=== PATIENT | female | born 1960 | race Caucasian/White ===

== ENCOUNTER 2021-08-13 08:56 | Inpatient (IN) ==
[2021-08-13] MEDS ORDERED: Piperacillin/Tazobac ADVAN 3.375 GM in NS 0.9% 100 ml BAG 100 ML IV ONE (09:21)
[2021-08-13] MEDS ORDERED: Magnesium Sulfate IV 3 GM in NS 0.9% 100 ml BAG 100 ML IVPB ONE (09:22)
[2021-08-13] MEDS ORDERED: Albuterol 2.5mg/3 ml (0.083%) NEB.SOLN INH ONE (09:24)
[2021-08-13] MEDS ORDERED: Hydrocortisone INJ 100 MG/2ML 2 ML VIAL IV ONE (09:30)
[2021-08-13 09:52] LABS: PO2 Arterial 94 mmHg (80-100)
[2021-08-13 09:56] LABS: PCO2 Arterial 106 mmHg (35-45)
[2021-08-13] MEDS ORDERED: Rocuronium 50 mg VIAL 10 mg/ml 5 ml VIAL (50 mg) IV ONE (09:58)
[2021-08-13] MEDS ORDERED: Propofol 10 mg/ml 100 ML BTL 100 ML IV SCH (10:00)
[2021-08-13] MEDS ORDERED: Norepinephrine 16MCG/ML IVPRE 4,000 MCG/250 ML BAG IV SCH (10:00)
[2021-08-13] MEDS ORDERED: Zosyn per Pharmacy NOTE FOLLOW UP SCH (10:00)
[2021-08-13] MEDS: Chlorhexidine MOUTHWASH 0.12% 15 ML UDC TOPICAL SCH ×4 (10:16→20:49)
[2021-08-13] MEDS ORDERED: fentaNYL 100 mcg/2 ml 50 MCG/ML VIAL ONE (10:56)
[2021-08-13] MEDS ORDERED: fentaNYL 100 mcg/2 ml 50 MCG/ML VIAL IV SLOW PU PRN (11:01)
[2021-08-13] MEDS: Linezolid 600 MG IVPREMIX(*) 600 MG/300 ML BAG IVPB SCH ×2 (11:01→20:46)
[2021-08-13] MEDS ORDERED: Cisatracurium 100 MG in NS 0.9% 250 ml 200 ML IV SCH ×3 (11:15→14:48)
[2021-08-13] MEDS: Albuterol/Ipratropium NEB.SOL (2.5/0.5 MG) 3 ML NEB.SOLN INH SCH ×4 (11:18→23:48)
[2021-08-13 11:52] LABS: Glucose Confirmatory 471 mg/dL (70-100)
[2021-08-13] MEDS ORDERED: fentaNYL INFUSION 50 mcg/mL VL 2,500 MCG/50 ML VIAL IV SCH (12:00)
[2021-08-13] MEDS: Propofol 10 mg/ml 100 ML BTL 100 ML IV SCH ×3 (12:07→18:53)
[2021-08-13] MEDS ORDERED: Dexmedetomidine 1,000 MCG in NS 0.9% 250 ml 240 ML IV SCH (13:00)
[2021-08-13] MEDS ORDERED: Perflutren Lipid Microsphere 3 ML VIAL ONE (13:13)
[2021-08-13] MEDS: Dexmedetomidine 1,000 MCG in NS 0.9% 250 ml 240 ML IV SCH (14:10)
[2021-08-13] MEDS: ZOSYN 3.375 GM Q8H per EXTENDED INFUSION IV SCH ×2 (14:30→20:49)
[2021-08-13 15:37] LABS: PCO2 Arterial 71 mmHg (35-45); PO2 Arterial 81 mmHg (80-100)
[2021-08-13] MEDS ORDERED: Morphine 2 MG/ML SYRINGE IV PRN (17:05)
[2021-08-13 17:26] LABS: ABS Lymphocytes 0.8 10^3/ul (1.0-4.8); ABS Monocytes 0.5 10^3/ul (0-0.8); ABS Neutrophils 11.4 10^3/ul (1.5-7.7); Hematocrit 39 % (35-47); Hemoglobin 12.5 g/dL (12.0-16.0); Lymphocyte % 6.3 %; Mean Corpuscular HGB Conc 32 g/dL (31-36); Mean Corpuscular Hemoglobin 26 pg (27-31); Mean Corpuscular Volume 81 fL (80-97); Mean Platelet Volume 8.5 fL (7.4-10.4); Nucleated Red Blood Cells % 0.1; Platelet Count 297 10^3/uL (150-450); Red Blood Count 4.78 10^6 /uL (3.70-4.87); Red Cell Distribution Width 15 % (10-15); White Blood Count 12.7 10^3/uL (3.5-10.8)
[2021-08-13 17:32] LABS: INR 1.17 (0.86-1.15)
[2021-08-13 17:34] LABS: Glucose Confirmatory 480 mg/dL (70-100)
[2021-08-13] MEDS ORDERED: Dextrose 50% Syringe 50 ml 25 GM/50 ML SYRINGE IV PUSH PRN (17:41)
[2021-08-13 17:44] LABS: Albumin 3.4 g/dL (3.2-5.2); EGFR African American 53.2 (>60); Globulin 3.3 g/dL (2-4); Magnesium 2.3 mg/dL (1.9-2.7); Phosphorus 5.3 mg/dL (2.5-5.0); Potassium 4.9 mmol/L (3.5-5.0); Total Bilirubin 0.3 mg/dL (0.2-1.0); Total Protein 6.7 g/dL (6.4-8.9)
[2021-08-13] MEDS ORDERED: Insulin GLARGINE 100 un/ml 10 ml VIAL ONE (17:56)
[2021-08-13] MEDS: Enoxaparin 40 MG/0.4 ML SYR SUBCUT SCH (18:00)
[2021-08-13] MEDS ORDERED: Insulin GLARGINE 100 un/ml 10 ml VIAL SUBCUT SCH (18:00)
[2021-08-13] MEDS: Hydrocortisone INJ 100 MG/2ML 2 ML VIAL IV SCH (18:01)
[2021-08-13 21:22] LABS: Glucose Confirmatory 403 mg/dL (70-100)
[2021-08-14] MEDS: Hydrocortisone INJ 100 MG/2ML 2 ML VIAL IV SCH (01:06)
[2021-08-14] MEDS: Propofol 10 mg/ml 100 ML BTL 100 ML IV SCH ×6 (01:06→20:29)
[2021-08-14] MEDS: Chlorhexidine MOUTHWASH 0.12% 15 ML UDC TOPICAL SCH ×6 (01:06→20:48)
[2021-08-14] MEDS: Albuterol/Ipratropium NEB.SOL (2.5/0.5 MG) 3 ML NEB.SOLN INH SCH ×9 (05:45→22:56)
[2021-08-14] MEDS: ZOSYN 3.375 GM Q8H per EXTENDED INFUSION IV SCH ×3 (06:04→20:49)
[2021-08-14 06:29] LABS: PCO2 Arterial 63 mmHg (35-45); PO2 Arterial 70 mmHg (80-100)
[2021-08-14] MEDS: Dexmedetomidine 1,000 MCG in NS 0.9% 250 ml 240 ML IV SCH (06:53)
[2021-08-14 07:02] LABS: Hematocrit 35 % (35-47); Hemoglobin 11.7 g/dL (12.0-16.0); Mean Corpuscular HGB Conc 33 g/dL (31-36); Mean Corpuscular Hemoglobin 26 pg (27-31); Mean Corpuscular Volume 79 fL (80-97); Mean Platelet Volume 8.7 fL (7.4-10.4); Platelet Count 268 10^3/uL (150-450); Red Blood Count 4.48 10^6 /uL (3.70-4.87); Red Cell Distribution Width 15 % (10-15); White Blood Count 13.2 10^3/uL (3.5-10.8)
[2021-08-14 07:16] LABS: EGFR African American 53.2 (>60); Magnesium 2.2 mg/dL (1.9-2.7); Phosphorus 4.6 mg/dL (2.5-5.0); Potassium 4.2 mmol/L (3.5-5.0)
[2021-08-14] MEDS: Linezolid 600 MG IVPREMIX(*) 600 MG/300 ML BAG IVPB SCH ×2 (09:36→20:49)
[2021-08-14] MEDS ORDERED: Furosemide 40 mg/4 ml IV VIAL IV ONE (09:46)
[2021-08-14] MEDS: methylPREDNISolone SOD 40 mg/ml 1 ml VIAL IV SCH ×2 (09:47→20:48)
[2021-08-14] MEDS: Pantoprazole VIAL 40 MG VIAL IV SCH (09:49)
[2021-08-14] MEDS: Nystatin TOP POWDER 15 GM BTL TOPICAL SCH ×3 (10:30→20:48)
[2021-08-14] MEDS ORDERED: Albuterol 2.5mg/3 ml (0.083%) NEB.SOLN INH ONE ×2 (10:47→10:52)
[2021-08-14] MEDS ORDERED: Cisatracurium 100 MG in NS 0.9% 250 ml 200 ML IV SCH ×2 (13:00→18:17)
[2021-08-14] MEDS: Insulin GLARGINE 100 un/ml 10 ml VIAL SUBCUT SCH (17:45)
[2021-08-14 17:51] LABS: EGFR African American 53.2 (>60); Potassium 4.4 mmol/L (3.5-5.0)
[2021-08-14 18:20] LABS: Phosphorus 4.7 mg/dL (2.5-5.0)
[2021-08-14] MEDS: Enoxaparin 40 MG/0.4 ML SYR SUBCUT SCH (20:48)
[2021-08-15] MEDS: Dexmedetomidine 1,000 MCG in NS 0.9% 250 ml 240 ML IV SCH ×2 (00:42→17:26)
[2021-08-15] MEDS: Chlorhexidine MOUTHWASH 0.12% 15 ML UDC TOPICAL SCH ×6 (00:51→22:09)
[2021-08-15] MEDS: Albuterol/Ipratropium NEB.SOL (2.5/0.5 MG) 3 ML NEB.SOLN INH SCH ×11 (00:59→22:56)
[2021-08-15] MEDS: Propofol 10 mg/ml 100 ML BTL 100 ML IV SCH ×4 (04:33→22:20)
[2021-08-15] MEDS: ZOSYN 3.375 GM Q8H per EXTENDED INFUSION IV SCH (05:07)
[2021-08-15 05:10] LABS: Hematocrit 34 % (35-47); Hemoglobin 11.1 g/dL (12.0-16.0); Mean Corpuscular HGB Conc 32 g/dL (31-36); Mean Corpuscular Hemoglobin 26 pg (27-31); Mean Corpuscular Volume 80 fL (80-97); Platelet Count 256 10^3/uL (150-450); Red Blood Count 4.28 10^6 /uL (3.70-4.87); Red Cell Distribution Width 14 % (10-15); White Blood Count 13.7 10^3/uL (3.5-10.8)
[2021-08-15 05:33] LABS: Calcium 7.9 mg/dL (8.6-10.3); EGFR African American 66.7 (>60); EGFR Non-African American 55.1 (>60); Phosphorus 4.2 mg/dL (2.5-5.0); Potassium 4.6 mmol/L (3.5-5.0)
[2021-08-15 09:31] LABS: PO2 Arterial 79 mmHg (80-100)
[2021-08-15] MEDS: Pantoprazole VIAL 40 MG VIAL IV SCH (09:34)
[2021-08-15] MEDS: methylPREDNISolone SOD 40 mg/ml 1 ml VIAL IV SCH ×2 (09:34→22:09)
[2021-08-15] MEDS: Nystatin TOP POWDER 15 GM BTL TOPICAL SCH ×3 (09:34→22:09)
[2021-08-15] MEDS: cefTRIAXone 1 gm/50 mL NS BAG 1 GM/50 ML BAG IVPB SCH (09:36)
[2021-08-15 09:38] LABS: PCO2 Arterial 76 mmHg (35-45)
[2021-08-15] MEDS ORDERED: Albuterol/Ipratropium NEB.SOL (2.5/0.5 MG) 3 ML NEB.SOLN INH SCH (10:00)
[2021-08-15] MEDS ORDERED: Albuterol/Ipratropium NEB.SOL (2.5/0.5 MG) 3 ML NEB.SOLN INH ONE (11:56)
[2021-08-15] MEDS ORDERED: Magnesium Sulfate 2 gm BAG 2 GM/50 ML BAG IVPB ONE (11:56)
[2021-08-15 12:49] LABS: PO2 Arterial 85 mmHg (80-100)
[2021-08-15 12:58] LABS: PCO2 Arterial 78 mmHg (35-45)
[2021-08-15] MEDS: Insulin GLARGINE 100 un/ml 10 ml VIAL SUBCUT SCH (17:25)
[2021-08-15] MEDS: Enoxaparin 40 MG/0.4 ML SYR SUBCUT SCH (22:09)
[2021-08-16] MEDS: Albuterol/Ipratropium NEB.SOL (2.5/0.5 MG) 3 ML NEB.SOLN INH SCH ×7 (00:56→23:01)
[2021-08-16] MEDS: Propofol 10 mg/ml 100 ML BTL 100 ML IV SCH ×4 (01:25→21:58)
[2021-08-16] MEDS: Chlorhexidine MOUTHWASH 0.12% 15 ML UDC TOPICAL SCH ×6 (01:44→20:29)
[2021-08-16 05:29] LABS: Hematocrit 35 % (35-47); Hemoglobin 11.2 g/dL (12.0-16.0); Mean Corpuscular HGB Conc 32 g/dL (31-36); Mean Corpuscular Hemoglobin 26 pg (27-31); Mean Corpuscular Volume 80 fL (80-97); Mean Platelet Volume 8.6 fL (7.4-10.4); Platelet Count 258 10^3/uL (150-450); Red Blood Count 4.38 10^6 /uL (3.70-4.87); Red Cell Distribution Width 14 % (10-15); White Blood Count 13.3 10^3/uL (3.5-10.8)
[2021-08-16 05:43] LABS: Calcium 8.3 mg/dL (8.6-10.3); EGFR African American 93.6 (>60); EGFR Non-African American 77.4 (>60); Magnesium 2.3 mg/dL (1.9-2.7); Phosphorus 3.7 mg/dL (2.5-5.0); Potassium 4.6 mmol/L (3.5-5.0)
[2021-08-16] MEDS ORDERED: Albuterol/Ipratropium NEB.SOL (2.5/0.5 MG) 3 ML NEB.SOLN INH SCH ×5 (09:00→19:00)
[2021-08-16] MEDS: cefTRIAXone 1 gm/50 mL NS BAG 1 GM/50 ML BAG IVPB SCH (09:14)
[2021-08-16] MEDS: Pantoprazole VIAL 40 MG VIAL IV SCH (09:16)
[2021-08-16] MEDS: methylPREDNISolone SOD 40 mg/ml 1 ml VIAL IV SCH ×3 (09:16→20:28)
[2021-08-16] MEDS: Nystatin TOP POWDER 15 GM BTL TOPICAL SCH ×3 (09:20→20:28)
[2021-08-16 10:54] LABS: PO2 Arterial 82 mmHg (80-100)
[2021-08-16 11:05] LABS: PCO2 Arterial 83 mmHg (35-45)
[2021-08-16] MEDS: fentaNYL 100 mcg/2 ml 50 MCG/ML VIAL IV SLOW PU PRN ×2 (13:12→16:47)
[2021-08-16] MEDS ORDERED: fentaNYL 100 mcg/2 ml 50 MCG/ML VIAL ONE (13:12)
[2021-08-16] MEDS: Insulin GLARGINE 100 un/ml 10 ml VIAL SUBCUT SCH (18:04)
[2021-08-16] MEDS: Enoxaparin 40 MG/0.4 ML SYR SUBCUT SCH (20:28)
[2021-08-17] MEDS: Propofol 10 mg/ml 100 ML BTL 100 ML IV SCH ×4 (00:13→06:55)
[2021-08-17] MEDS: Chlorhexidine MOUTHWASH 0.12% 15 ML UDC TOPICAL SCH ×3 (02:12→11:35)
[2021-08-17] MEDS: methylPREDNISolone SOD 40 mg/ml 1 ml VIAL IV SCH ×4 (02:48→21:47)
[2021-08-17] MEDS: Albuterol/Ipratropium NEB.SOL (2.5/0.5 MG) 3 ML NEB.SOLN INH SCH ×3 (03:01→10:17)
[2021-08-17 04:47] LABS: Hematocrit 35 % (35-47); Hemoglobin 11.4 g/dL (12.0-16.0); Mean Corpuscular HGB Conc 32 g/dL (31-36); Mean Corpuscular Hemoglobin 25 pg (27-31); Mean Corpuscular Volume 79 fL (80-97); Mean Platelet Volume 8.3 fL (7.4-10.4); Platelet Count 266 10^3/uL (150-450); Red Blood Count 4.46 10^6 /uL (3.70-4.87); Red Cell Distribution Width 14 % (10-15); White Blood Count 12.2 10^3/uL (3.5-10.8)
[2021-08-17] MEDS: Dexmedetomidine 1,000 MCG in NS 0.9% 250 ml 240 ML IV SCH (04:58)
[2021-08-17 05:03] LABS: Calcium 8.6 mg/dL (8.6-10.3); EGFR African American 106.4 (>60); Magnesium 2.2 mg/dL (1.9-2.7); Phosphorus 3.6 mg/dL (2.5-5.0); Potassium 4.9 mmol/L (3.5-5.0)
[2021-08-17] MEDS: cefTRIAXone 1 gm/50 mL NS BAG 1 GM/50 ML BAG IVPB SCH (08:08)
[2021-08-17] MEDS: Nystatin TOP POWDER 15 GM BTL TOPICAL SCH ×3 (08:10→21:47)
[2021-08-17] MEDS: Pantoprazole VIAL 40 MG VIAL IV SCH (08:10)
[2021-08-17] MEDS ORDERED: Furosemide 40 mg/4 ml IV VIAL IV SLOW PU ONE ×2 (08:31→18:04)
[2021-08-17] MEDS ORDERED: Furosemide 40 mg/4 ml IV VIAL ONE (08:32)
[2021-08-17 09:02] LABS: PCO2 Arterial 68 mmHg (35-45); PO2 Arterial 91 mmHg (80-100)
[2021-08-17] MEDS: fentaNYL 100 mcg/2 ml 50 MCG/ML VIAL IV SLOW PU PRN (09:54)
[2021-08-17] MEDS ORDERED: fentaNYL 100 mcg/2 ml 50 MCG/ML VIAL IV SLOW PU ONE (10:11)
[2021-08-17] MEDS: Insulin GLARGINE 100 un/ml 10 ml VIAL SUBCUT SCH (18:08)
[2021-08-17 18:49] LABS: Calcium 9.3 mg/dL (8.6-10.3); EGFR African American 101.3 (>60); EGFR Non-African American 83.7 (>60); Potassium 4.4 mmol/L (3.5-5.0)
[2021-08-17] MEDS: Enoxaparin 40 MG/0.4 ML SYR SUBCUT SCH (21:47)
[2021-08-17] MEDS: Metoprolol Tartrate 5 mg VIAL 5 ml VIAL (1 mg/ml) IV PRN (22:04)
[2021-08-17] MEDS: hydrALAZINE 20 mg/ml 1 ML Vial IV IV SLOW PU PRN (23:11)
[2021-08-18] MEDS ORDERED: Lorazepam PYXIS KEY PRN (00:34)
[2021-08-18] MEDS: LORazepam 2 mg VIAL 1 ml IV PUSH PRN ×3 (00:57→21:22)
[2021-08-18] MEDS: methylPREDNISolone SOD 40 mg/ml 1 ml VIAL IV SCH ×3 (03:53→18:05)
[2021-08-18] MEDS: Metoprolol Tartrate 5 mg VIAL 5 ml VIAL (1 mg/ml) IV PRN ×3 (05:11→21:22)
[2021-08-18 05:25] LABS: ABS Basophils 0.1 10^3/ul (0-0.2); ABS Lymphocytes 1.6 10^3/ul (1.0-4.8); ABS Monocytes 0.9 10^3/ul (0-0.8); ABS Neutrophils 12.7 10^3/ul (1.5-7.7); Hematocrit 41 % (35-47); Hemoglobin 13.3 g/dL (12.0-16.0); Lymphocyte % 10.4 %; Mean Corpuscular HGB Conc 32 g/dL (31-36); Mean Corpuscular Hemoglobin 26 pg (27-31); Mean Corpuscular Volume 79 fL (80-97); Mean Platelet Volume 8.3 fL (7.4-10.4); Platelet Count 350 10^3/uL (150-450); Red Blood Count 5.21 10^6 /uL (3.70-4.87); Red Cell Distribution Width 15 % (10-15); White Blood Count 15.3 10^3/uL (3.5-10.8)
[2021-08-18 05:53] LABS: Calcium 9.4 mg/dL (8.6-10.3); EGFR African American 110.2 (>60); Magnesium 1.9 mg/dL (1.9-2.7); Phosphorus 2.7 mg/dL (2.5-5.0); Potassium 4.2 mmol/L (3.5-5.0)
[2021-08-18] MEDS: hydrALAZINE 20 mg/ml 1 ML Vial IV IV SLOW PU PRN (07:32)
[2021-08-18] MEDS: Albuterol HFA INHALER 8 gm MDI INH PRN ×3 (08:03→16:45)
[2021-08-18 08:05] LABS: PCO2 Arterial 69 mmHg (35-45); PO2 Arterial 111 mmHg (80-100)
[2021-08-18] MEDS: Pantoprazole VIAL 40 MG VIAL IV SCH (09:23)
[2021-08-18] MEDS: cefTRIAXone 1 gm/50 mL NS BAG 1 GM/50 ML BAG IVPB SCH (09:23)
[2021-08-18] MEDS: Nystatin TOP POWDER 15 GM BTL TOPICAL SCH ×3 (09:23→20:57)
[2021-08-18] MEDS: Enoxaparin 40 MG/0.4 ML SYR SUBCUT SCH (20:55)
[2021-08-18] MEDS: Insulin GLARGINE 100 un/ml 10 ml VIAL SUBCUT SCH (20:56)
[2021-08-19] MEDS: hydrALAZINE 20 mg/ml 1 ML Vial IV IV SLOW PU PRN (00:40)
[2021-08-19] MEDS: methylPREDNISolone SOD 40 mg/ml 1 ml VIAL IV SCH (00:40)
[2021-08-19] MEDS: LORazepam 2 mg VIAL 1 ml IV PUSH PRN (01:37)
[2021-08-19 05:05] LABS: ABS Monocytes 0.5 10^3/ul (0-0.8); ABS Neutrophils 11.7 10^3/ul (1.5-7.7); Hematocrit 43 % (35-47); Hemoglobin 13.8 g/dL (12.0-16.0); Lymphocyte % 7.7 %; Mean Corpuscular HGB Conc 32 g/dL (31-36); Mean Corpuscular Hemoglobin 26 pg (27-31); Mean Corpuscular Volume 80 fL (80-97); Mean Platelet Volume 8.6 fL (7.4-10.4); Platelet Count 323 10^3/uL (150-450); Red Blood Count 5.29 10^6 /uL (3.70-4.87); Red Cell Distribution Width 14 % (10-15); White Blood Count 13.3 10^3/uL (3.5-10.8)
[2021-08-19 05:32] LABS: Blood Urea Nitrogen 31 mg/dL (6-24); CO2 Carbon Dioxide 38 mmol/L (22-32); Calcium 9.6 mg/dL (8.6-10.3); Chloride 93 mmol/L (101-111); Glucose 373 mg/dL (70-100); Magnesium 1.9 mg/dL (1.9-2.7); Sodium 137 mmol/L (135-145)
[2021-08-19 06:02] LABS: Anion Gap 6 mmol/L (2-11)
[2021-08-19 06:47] LABS: Phosphorus 3.5 mg/dL (2.5-5.0); Potassium Redraw 4.8 mmol/L (3.5-5.0)
[2021-08-19] MEDS: cefTRIAXone 1 gm/50 mL NS BAG 1 GM/50 ML BAG IVPB SCH (09:17)
[2021-08-19] MEDS: Pantoprazole VIAL 40 MG VIAL IV SCH (09:18)
[2021-08-19] MEDS: Nystatin TOP POWDER 15 GM BTL TOPICAL SCH ×3 (09:18→20:13)
[2021-08-19] MEDS ORDERED: hydrALAZINE 20 mg/ml 1 ML Vial IV IV SLOW PU PRN (14:50)
[2021-08-19] MEDS ORDERED: Albuterol/Ipratropium NEB.SOL (2.5/0.5 MG) 3 ML NEB.SOLN INH PRN (16:55)
[2021-08-19 17:21] LABS: Glucose Confirmatory 439 mg/dL (70-100)
[2021-08-19] MEDS: Albuterol/Ipratropium NEB.SOL (2.5/0.5 MG) 3 ML NEB.SOLN INH SCH (18:45)
[2021-08-19] MEDS: Enoxaparin 40 MG/0.4 ML SYR SUBCUT SCH (20:12)
[2021-08-19] MEDS: Insulin GLARGINE 100 un/ml 10 ml VIAL SUBCUT SCH (20:31)
[2021-08-20] MEDS: Albuterol/Ipratropium NEB.SOL (2.5/0.5 MG) 3 ML NEB.SOLN INH SCH (02:10)
[2021-08-20 06:44] LABS: Calcium 9.4 mg/dL (8.6-10.3); Magnesium 1.8 mg/dL (1.9-2.7)
[2021-08-20] MEDS ORDERED: Magnesium Sulfate 2 gm BAG 2 GM/50 ML BAG IVPB ONE (06:49)
[2021-08-20] MEDS ORDERED: Albuterol HFA INHALER 8 gm MDI INH PRN (08:46)
[2021-08-20] MEDS: Pantoprazole VIAL 40 MG VIAL IV SCH (09:20)
[2021-08-20] MEDS: cefTRIAXone 1 gm/50 mL NS BAG 1 GM/50 ML BAG IVPB SCH (09:20)
[2021-08-20] MEDS: Nystatin TOP POWDER 15 GM BTL TOPICAL SCH ×3 (09:20→21:21)
[2021-08-20] MEDS: SPIRIVA Respimat (tiotropium) 2.5 mcg/inh Inhaler INH SCH (10:59)
[2021-08-20] MEDS: Albuterol HFA INHALER 8 gm MDI INH SCH ×2 (10:59→17:04)
[2021-08-20] MEDS: LORazepam 2 mg VIAL 1 ml IV PUSH PRN (20:24)
[2021-08-20] MEDS: Insulin GLARGINE 100 un/ml 10 ml VIAL SUBCUT SCH (21:16)
[2021-08-20] MEDS: Enoxaparin 40 MG/0.4 ML SYR SUBCUT SCH (21:16)
[2021-08-21] MEDS: Albuterol HFA INHALER 8 gm MDI INH SCH ×3 (01:39→16:36)
[2021-08-21 07:27] LABS: Magnesium 1.9 mg/dL (1.9-2.7); Phosphorus 3.6 mg/dL (2.5-5.0); Potassium 4.1 mmol/L (3.5-5.0)
[2021-08-21] MEDS: SPIRIVA Respimat (tiotropium) 2.5 mcg/inh Inhaler INH SCH (08:20)
[2021-08-21] MEDS: cefTRIAXone 1 gm/50 mL NS BAG 1 GM/50 ML BAG IVPB SCH (09:01)
[2021-08-21] MEDS: Nystatin TOP POWDER 15 GM BTL TOPICAL SCH ×3 (09:03→20:50)
[2021-08-21] MEDS: Pantoprazole VIAL 40 MG VIAL IV SCH (09:03)
[2021-08-21] MEDS: Enoxaparin 40 MG/0.4 ML SYR SUBCUT SCH (20:37)
[2021-08-21] MEDS: Insulin GLARGINE 100 un/ml 10 ml VIAL SUBCUT SCH (20:38)
[2021-08-22] MEDS: Albuterol HFA INHALER 8 gm MDI INH SCH ×4 (02:40→16:49)
[2021-08-22] MEDS: SPIRIVA Respimat (tiotropium) 2.5 mcg/inh Inhaler INH SCH ×2 (08:50→09:48)
[2021-08-22] MEDS: Nystatin TOP POWDER 15 GM BTL TOPICAL SCH ×3 (09:42→21:55)
[2021-08-22 11:47] LABS: ABS Basophils 0.1 10^3/ul (0-0.2); ABS Eosinophils 0.2 10^3/ul (0-0.6); ABS Lymphocytes 2.3 10^3/ul (1.0-4.8); ABS Monocytes 0.8 10^3/ul (0-0.8); ABS Neutrophils 16.3 10^3/ul (1.5-7.7); Hematocrit 40 % (35-47); Hemoglobin 12.9 g/dL (12.0-16.0); Lymphocyte % 11.6 %; Mean Corpuscular HGB Conc 32 g/dL (31-36); Mean Corpuscular Hemoglobin 25 pg (27-31); Mean Corpuscular Volume 79 fL (80-97); Mean Platelet Volume 8.7 fL (7.4-10.4); Platelet Count 337 10^3/uL (150-450); Red Blood Count 5.07 10^6 /uL (3.70-4.87); Red Cell Distribution Width 14 % (10-15); White Blood Count 19.8 10^3/uL (3.5-10.8)
[2021-08-22 12:04] LABS: Calcium 8.9 mg/dL (8.6-10.3); Magnesium 1.6 mg/dL (1.9-2.7); Potassium 4.3 mmol/L (3.5-5.0)
[2021-08-22] MEDS: Enoxaparin 40 MG/0.4 ML SYR SUBCUT SCH (21:41)
[2021-08-22] MEDS: Insulin GLARGINE 100 un/ml 10 ml VIAL SUBCUT SCH (21:43)
[2021-08-23] MEDS: Albuterol HFA INHALER 8 gm MDI INH SCH ×3 (01:08→16:36)
[2021-08-23 06:52] LABS: Calcium 8.8 mg/dL (8.6-10.3); Magnesium 1.7 mg/dL (1.9-2.7); Potassium 4.1 mmol/L (3.5-5.0)
[2021-08-23] MEDS: SPIRIVA Respimat (tiotropium) 2.5 mcg/inh Inhaler INH SCH (07:59)
[2021-08-23] MEDS: Nystatin TOP POWDER 15 GM BTL TOPICAL SCH ×3 (12:03→21:02)
[2021-08-23] MEDS: Insulin GLARGINE 100 un/ml 10 ml VIAL SUBCUT SCH (21:25)
[2021-08-23] MEDS: Enoxaparin 40 MG/0.4 ML SYR SUBCUT SCH (21:27)
[2021-08-24] MEDS: Albuterol HFA INHALER 8 gm MDI INH SCH ×3 (01:46→16:29)
[2021-08-24] MEDS: SPIRIVA Respimat (tiotropium) 2.5 mcg/inh Inhaler INH SCH (08:02)
[2021-08-24] MEDS: Nystatin TOP POWDER 15 GM BTL TOPICAL SCH ×3 (09:37→22:32)
[2021-08-24] MEDS: Insulin GLARGINE 100 un/ml 10 ml VIAL SUBCUT SCH (22:25)
[2021-08-24] MEDS: Enoxaparin 40 MG/0.4 ML SYR SUBCUT SCH (22:31)
[2021-08-25] MEDS: Albuterol HFA INHALER 8 gm MDI INH SCH ×3 (00:52→16:52)
[2021-08-25] MEDS: SPIRIVA Respimat (tiotropium) 2.5 mcg/inh Inhaler INH SCH (07:09)
[2021-08-25 07:12] LABS: ABS Basophils 0.1 10^3/ul (0-0.2); ABS Eosinophils 0.2 10^3/ul (0-0.6); ABS Lymphocytes 4.5 10^3/ul (1.0-4.8); ABS Monocytes 0.8 10^3/ul (0-0.8); ABS Neutrophils 7.4 10^3/ul (1.5-7.7); Eosinophil % 1.4 %; Hematocrit 38 % (35-47); Hemoglobin 12.6 g/dL (12.0-16.0); Mean Corpuscular HGB Conc 33 g/dL (31-36); Mean Corpuscular Hemoglobin 26 pg (27-31); Mean Corpuscular Volume 78 fL (80-97); Mean Platelet Volume 8.8 fL (7.4-10.4); Platelet Count 278 10^3/uL (150-450); Red Blood Count 4.88 10^6 /uL (3.70-4.87); Red Cell Distribution Width 14 % (10-15); White Blood Count 12.9 10^3/uL (3.5-10.8)
[2021-08-25 07:28] LABS: Calcium 8.8 mg/dL (8.6-10.3); Magnesium 1.6 mg/dL (1.9-2.7); Potassium 4.2 mmol/L (3.5-5.0)
[2021-08-25] MEDS ORDERED: Iodixanol (CONTRAST) 320 MG/ML 100 ML SDV IV ONE (07:58)
[2021-08-25] MEDS: Nystatin TOP POWDER 15 GM BTL TOPICAL SCH ×3 (08:51→21:18)
[2021-08-25] MEDS: Mometasone/Formoter 200/5 MDI INH SCH ×2 (11:16→20:11)
[2021-08-25] MEDS: Enoxaparin 40 MG/0.4 ML SYR SUBCUT SCH (21:11)
[2021-08-25] MEDS: Insulin GLARGINE 100 un/ml 10 ml VIAL SUBCUT SCH (21:18)
[2021-08-26] MEDS: Albuterol HFA INHALER 8 gm MDI INH SCH ×3 (02:24→19:28)
[2021-08-26] MEDS: Mometasone/Formoter 200/5 MDI INH SCH ×2 (07:02→19:29)
[2021-08-26] MEDS: SPIRIVA Respimat (tiotropium) 2.5 mcg/inh Inhaler INH SCH (07:03)
[2021-08-26] MEDS: Nystatin TOP POWDER 15 GM BTL TOPICAL SCH ×3 (09:40→21:51)
[2021-08-26 18:12] LABS: Glucose Confirmatory 441 mg/dL (70-100)
[2021-08-26] MEDS: Enoxaparin 40 MG/0.4 ML SYR SUBCUT SCH (21:32)
[2021-08-26] MEDS: Insulin GLARGINE 100 un/ml 10 ml VIAL SUBCUT SCH (21:49)
[2021-08-27] MEDS: Albuterol HFA INHALER 8 gm MDI INH SCH ×3 (02:50→16:13)
[2021-08-27] MEDS: Mometasone/Formoter 200/5 MDI INH SCH ×2 (08:00→19:41)
[2021-08-27] MEDS: SPIRIVA Respimat (tiotropium) 2.5 mcg/inh Inhaler INH SCH (08:01)
[2021-08-27] MEDS: Nystatin TOP POWDER 15 GM BTL TOPICAL SCH (08:42)
[2021-08-27] MEDS: Insulin GLARGINE 100 un/ml 10 ml VIAL SUBCUT SCH (20:47)
[2021-08-27] MEDS: Enoxaparin 40 MG/0.4 ML SYR SUBCUT SCH (20:47)
[2021-08-28] MEDS: Albuterol HFA INHALER 8 gm MDI INH SCH ×3 (02:11→17:17)
[2021-08-28 07:17] LABS: Calcium 8.5 mg/dL (8.6-10.3); Potassium 3.8 mmol/L (3.5-5.0)
[2021-08-28] MEDS: Mometasone/Formoter 200/5 MDI INH SCH ×2 (07:36→20:23)
[2021-08-28] MEDS: SPIRIVA Respimat (tiotropium) 2.5 mcg/inh Inhaler INH SCH (07:37)
[2021-08-28 22:08] LABS: PCO2 Arterial 64 mmHg (35-45)
[2021-08-28 22:28] LABS: PO2 Arterial Temp Correct <38 mmHg (80-100)
[2021-08-28] MEDS: Enoxaparin 40 MG/0.4 ML SYR SUBCUT SCH (23:28)
[2021-08-28] MEDS: Insulin GLARGINE 100 un/ml 10 ml VIAL SUBCUT SCH (23:28)
[2021-08-29] MEDS: Albuterol HFA INHALER 8 gm MDI INH SCH ×2 (01:36→07:23)
[2021-08-29] MEDS: SPIRIVA Respimat (tiotropium) 2.5 mcg/inh Inhaler INH SCH (07:23)
[2021-08-29] MEDS: Mometasone/Formoter 200/5 MDI INH SCH (07:24)
[2021-08-29 11:07] VITALS: BP 122/60
[2021-08-29] MEDS ORDERED: Nystatin TOP POWDER 15 GM BTL TOPICAL SCH (14:00)
[2021-08-29 15:27] LABS: PCO2 Arterial 57 mmHg (35-45); PO2 Arterial 122 mmHg (80-100)
== END 2021-08-29 16:34 | disposition home or self-care (01) | DRG 140 ==
LOC: SUATTDRO 08:56 → ICU 08:56 → MED 08-20 18:38
PROVIDERS: ADMIT Internal Medicine; ATTEND Pediatrics

== ENCOUNTER 2022-04-14 18:52 | Inpatient (IN) ==
[2022-04-14] MEDS ORDERED: methylPREDNISolone SOD SUCC 125 mg 2 ML VIAL IV ONE (19:23)
[2022-04-14 20:05] LABS: Hematocrit 33 % (35-47); Hemoglobin 10.4 g/dL (12.0-16.0); Mean Corpuscular HGB Conc 32 g/dL (31-36); Mean Corpuscular Hemoglobin 25 pg (27-31); Mean Corpuscular Volume 78 fL (80-97); Mean Platelet Volume 8.5 fL (7.4-10.4); Platelet Count 335 10^3/uL (150-450); Red Cell Distribution Width 15 % (10-15); White Blood Count 21.5 10^3/uL (3.5-10.8)
[2022-04-14 20:07] LABS: ABS Basophils 0.1 10^3/ul (0-0.2); ABS Lymphocytes 0.8 10^3/ul (1.0-4.8); ABS Monocytes 0.3 10^3/ul (0-0.8); ABS Neutrophils 20.3 10^3/ul (1.5-7.7); Eosinophil % 0.2 %; Lymphocyte % 3.7 %
[2022-04-14] MEDS: Albuterol 2.5mg/3 ml (0.083%) NEB.SOLN INH SCH ×3 (20:14→20:30)
[2022-04-14 20:15] LABS: Activated Partial Thrombo Time 34.8 seconds (26.0-38.0); INR 1.08 (0.86-1.15)
[2022-04-14 20:35] LABS: PCO2 Arterial 66 mmHg (35-45); PO2 Arterial 77 mmHg (80-100)
[2022-04-14 20:52] LABS: Albumin 3.6 g/dL (3.2-5.2); Albumin/Globulin Ratio 1.1 (1-3); Calcium 8.8 mg/dL (8.6-10.3); Globulin 3.2 g/dL (2-4); Total Bilirubin 0.2 mg/dL (0.2-1.0); Total Protein 6.8 g/dL (6.4-8.9); eGFR CKD-EPI 66.5 (>60)
[2022-04-14 20:59] LABS: Potassium 5.1 mmol/L (3.5-5.0)
[2022-04-14 21:26] LABS: High Sensitivity Troponin 1 Hr 157 pg/mL (<15)
[2022-04-14] MEDS ORDERED: Albuterol 2.5mg/3 ml (0.083%) NEB.SOLN INH PRN (22:00)
[2022-04-14] MEDS ORDERED: Piperacillin/Tazobac ADVAN 3.375 GM in NS 0.9% 100 ml BAG 100 ML IVPB ONE (22:19)
[2022-04-14] MEDS: Enoxaparin 40 MG/0.4 ML SYR SUBCUT SCH (22:35)
[2022-04-14] MEDS ORDERED: Dextrose 50% Syringe 50 ml 25 GM/50 ML SYRINGE IV PUSH PRN (22:53)
[2022-04-14] MEDS ORDERED: Zosyn per Pharmacy NOTE FOLLOW UP SCH (23:00)
[2022-04-14 23:19] LABS: PO2 Arterial 80 mmHg (80-100)
[2022-04-14 23:23] LABS: PCO2 Arterial 80 mmHg (35-45)
[2022-04-15] MEDS: DOXYcycline 100 MG in NS 0.9% 250 ml 250 ML IVPB SCH ×3 (00:24→21:42)
[2022-04-15 01:06] LABS: PO2 Arterial 130 mmHg (80-100)
[2022-04-15 01:09] LABS: PCO2 Arterial 75 mmHg (35-45)
[2022-04-15 01:26] LABS: Glucose Confirmatory 452 mg/dL (70-100)
[2022-04-15 01:34] LABS: High Sensitivity Troponin 3 Hr 417 pg/mL (<15)
[2022-04-15] MEDS ORDERED: Enoxaparin 60 MG/0.6 ML SYR SUBCUT ONE (01:54)
[2022-04-15] MEDS: ZOSYN 3.375 GM Q8H per EXTENDED INFUSION IV SCH ×3 (03:20→19:05)
[2022-04-15 03:39] LABS: Glucose Confirmatory 439 mg/dL (70-100)
[2022-04-15 04:43] LABS: ABS Basophils 0.1 10^3/ul (0-0.2); ABS Lymphocytes 0.7 10^3/ul (1.0-4.8); ABS Monocytes 0.1 10^3/ul (0-0.8); ABS Neutrophils 12.2 10^3/ul (1.5-7.7); Eosinophil % 0.1 %; Hematocrit 33 % (35-47); Hemoglobin 10.2 g/dL (12.0-16.0); Lymphocyte % 5.5 %; Mean Corpuscular HGB Conc 31 g/dL (31-36); Mean Corpuscular Hemoglobin 25 pg (27-31); Mean Corpuscular Volume 79 fL (80-97); Mean Platelet Volume 8.4 fL (7.4-10.4); Platelet Count 310 10^3/uL (150-450); Red Blood Count 4.13 10^6 /uL (3.70-4.87); Red Cell Distribution Width 15 % (10-15); White Blood Count 13.1 10^3/uL (3.5-10.8)
[2022-04-15 05:14] LABS: Calcium 8.6 mg/dL (8.6-10.3); HDL Cholesterol 46.5 mg/dL; Potassium 4.9 mmol/L (3.5-5.0); eGFR CKD-EPI 64.9 (>60)
[2022-04-15] MEDS ORDERED: Insulin GLARGINE 100 un/ml 10 ml VIAL SUBCUT ONE (07:00)
[2022-04-15] MEDS: Mometasone/Formoter 200/5 MDI INH SCH ×3 (07:34→19:34)
[2022-04-15] MEDS: SPIRIVA Respimat (tiotropium) 2.5 mcg/inh Inhaler INH SCH ×2 (07:35→09:18)
[2022-04-15 08:19] LABS: Magnesium 1.7 mg/dL (1.9-2.7)
[2022-04-15] MEDS ORDERED: Magnesium Sulfate IV 3 GM in NS 0.9% 100 ml BAG 100 ML IVPB ONE (08:21)
[2022-04-15] MEDS: methylPREDNISolone SOD SUCC 125 mg 2 ML VIAL IV SCH ×2 (09:00→20:41)
[2022-04-15] MEDS ORDERED: Insulin GLARGINE 100 un/ml 10 ml VIAL SUBCUT SCH ×3 (09:00→21:00)
[2022-04-15] MEDS ORDERED: Magnesium Sulfate 2 GM IV (Premix) IVPB ONE (09:00)
[2022-04-15] MEDS: Albuterol HFA INHALER 8 gm MDI INH PRN (09:17)
[2022-04-15] MEDS ORDERED: Magnesium Sulfate 1 GM IV 1 GM/100 ML BAG IV ONE (10:00)
[2022-04-15 10:33] LABS: Phosphorus 3.9 mg/dL (2.5-5.0)
[2022-04-15 14:28] LABS: Ferritin 128.6 ng/mL (11-307)
[2022-04-15] MEDS ORDERED: Perflutren Lipid Microsphere 3 ML VIAL ONE (15:11)
[2022-04-15] MEDS: Enoxaparin 40 MG/0.4 ML SYR SUBCUT SCH (21:50)
[2022-04-16] MEDS: ZOSYN 3.375 GM Q8H per EXTENDED INFUSION IV SCH ×3 (04:19→21:41)
[2022-04-16 05:27] LABS: ABS Lymphocytes 1.2 10^3/ul (1.0-4.8); ABS Monocytes 0.4 10^3/ul (0-0.8); ABS Neutrophils 17.1 10^3/ul (1.5-7.7); Hematocrit 32 % (35-47); Hemoglobin 10.2 g/dL (12.0-16.0); Lymphocyte % 6.4 %; Mean Corpuscular HGB Conc 32 g/dL (31-36); Mean Corpuscular Hemoglobin 25 pg (27-31); Mean Corpuscular Volume 79 fL (80-97); Mean Platelet Volume 8.7 fL (7.4-10.4); Platelet Count 318 10^3/uL (150-450); Red Blood Count 4.04 10^6 /uL (3.70-4.87); Red Cell Distribution Width 15 % (10-15); White Blood Count 18.7 10^3/uL (3.5-10.8)
[2022-04-16 06:06] LABS: Calcium 8.5 mg/dL (8.6-10.3); eGFR CKD-EPI 87.7 (>60)
[2022-04-16 06:20] LABS: Potassium 5.1 mmol/L (3.5-5.0)
[2022-04-16] MEDS: methylPREDNISolone SOD SUCC 125 mg 2 ML VIAL IV SCH ×2 (07:58→21:33)
[2022-04-16] MEDS: DOXYcycline 100 MG in NS 0.9% 250 ml 250 ML IVPB SCH (08:01)
[2022-04-16 09:06] LABS: Urine Appearance Clear; Urine Bilirubin Negative (Negative); Urine Blood Negative (Negative); Urine Color Yellow; Urine Glucose 3+(>=500 mg/dL) (Negative); Urine Ketones Negative (Negative); Urine Nitrite Negative (Negative); Urine Protein 1+(30 mg/dL) (Negative); Urine Specific Gravity 1.017 (1.002-1.030); Urine Urobilinogen Negative (Negative)
[2022-04-16] MEDS: Mometasone/Formoter 200/5 MDI INH SCH ×2 (09:22→19:18)
[2022-04-16] MEDS: SPIRIVA Respimat (tiotropium) 2.5 mcg/inh Inhaler INH SCH (09:22)
[2022-04-16] MEDS: Albuterol HFA INHALER 8 gm MDI INH PRN ×2 (09:22→19:20)
[2022-04-16 09:37] LABS: Urine Bacteria Absent (Absent); Urine Red Blood Cell 1+(3-5/hpf) (Absent); Urine Squamous Epithelial Cell Present (Absent); Urine Transitional Epithelial Present (Absent); Urine White Blood Cell 1+(6-10/hpf) (Absent)
[2022-04-16] MEDS ORDERED: Nicotine GUM 4MG FRUIT FLAVOR PO PRN (17:13)
[2022-04-16] MEDS ORDERED: Insulin GLARGINE 100 un/ml 10 ml VIAL SUBCUT SCH ×2 (21:00)
[2022-04-16] MEDS: Enoxaparin 40 MG/0.4 ML SYR SUBCUT SCH (21:34)
[2022-04-16] MEDS: ZOSYN 3.375 GM IV SCH (21:44)
[2022-04-16] MEDS: Azithromycin 500 mg/250 ml NS 500 MG/250 ML BAG IVPB SCH (22:41)
[2022-04-17] MEDS: ZOSYN 3.375 GM IV SCH ×4 (05:11→23:36)
[2022-04-17] MEDS: SPIRIVA Respimat (tiotropium) 2.5 mcg/inh Inhaler INH SCH (07:27)
[2022-04-17] MEDS: Mometasone/Formoter 200/5 MDI INH SCH ×2 (07:28→19:46)
[2022-04-17] MEDS: Albuterol HFA INHALER 8 gm MDI INH PRN (07:29)
[2022-04-17 07:50] LABS: ABS Monocytes 0.3 10^3/ul (0-0.8); ABS Neutrophils 11.6 10^3/ul (1.5-7.7); Hematocrit 32 % (35-47); Hemoglobin 10.2 g/dL (12.0-16.0); Mean Corpuscular HGB Conc 32 g/dL (31-36); Mean Corpuscular Hemoglobin 25 pg (27-31); Mean Corpuscular Volume 79 fL (80-97); Mean Platelet Volume 8.8 fL (7.4-10.4); Platelet Count 329 10^3/uL (150-450); Red Blood Count 4.03 10^6 /uL (3.70-4.87); Red Cell Distribution Width 15 % (10-15); White Blood Count 12.9 10^3/uL (3.5-10.8)
[2022-04-17] MEDS: methylPREDNISolone SOD SUCC 125 mg 2 ML VIAL IV SCH (07:54)
[2022-04-17 08:43] LABS: Blood Urea Nitrogen 29 mg/dL (6-24); Calcium 8.5 mg/dL (8.6-10.3); Chloride 92 mmol/L (101-111); Glucose 335 mg/dL (70-100); Magnesium 1.9 mg/dL (1.9-2.7); Sodium 135 mmol/L (135-145)
[2022-04-17 09:02] LABS: Anion Gap 4 mmol/L (2-11); CO2 Carbon Dioxide 39 mmol/L (22-32)
[2022-04-17] MEDS ORDERED: Insulin GLARGINE 100 un/ml 10 ml VIAL SUBCUT SCH (21:00)
[2022-04-17] MEDS: Azithromycin 500 mg/250 ml NS 500 MG/250 ML BAG IVPB SCH (21:00)
[2022-04-18] MEDS: Enoxaparin 40 MG/0.4 ML SYR SUBCUT SCH (03:47)
[2022-04-18] MEDS: ZOSYN 3.375 GM IV SCH ×4 (05:42→23:45)
[2022-04-18 06:30] LABS: ABS Lymphocytes 1.3 10^3/ul (1.0-4.8); ABS Monocytes 0.6 10^3/ul (0-0.8); ABS Neutrophils 10.6 10^3/ul (1.5-7.7); Hematocrit 33 % (35-47); Hemoglobin 10.6 g/dL (12.0-16.0); Lymphocyte % 10.3 %; Mean Corpuscular HGB Conc 32 g/dL (31-36); Mean Corpuscular Hemoglobin 25 pg (27-31); Mean Corpuscular Volume 79 fL (80-97); Mean Platelet Volume 8.6 fL (7.4-10.4); Platelet Count 345 10^3/uL (150-450); Red Cell Distribution Width 15 % (10-15); White Blood Count 12.5 10^3/uL (3.5-10.8)
[2022-04-18 06:53] LABS: Calcium 8.6 mg/dL (8.6-10.3); Potassium 4.6 mmol/L (3.5-5.0); eGFR CKD-EPI 87.7 (>60)
[2022-04-18] MEDS ORDERED: Enoxaparin 40 MG/0.4 ML SYR SUBCUT SCH (09:00)
[2022-04-18] MEDS: Albuterol HFA INHALER 8 gm MDI INH PRN (09:11)
[2022-04-18] MEDS: Mometasone/Formoter 200/5 MDI INH SCH ×2 (09:12→20:47)
[2022-04-18] MEDS: SPIRIVA Respimat (tiotropium) 2.5 mcg/inh Inhaler INH SCH (09:39)
[2022-04-18 15:47] LABS: PCO2 Arterial 64 mmHg (35-45)
[2022-04-18 15:50] LABS: PO2 Arterial 55 mmHg (80-100)
[2022-04-18] MEDS ORDERED: Albuterol/Ipratropium NEB.SOL (2.5/0.5 MG) 3 ML NEB.SOLN INH ONE (16:32)
[2022-04-18] MEDS ORDERED: methylPREDNISolone SOD SUCC 40 mg/ml 1 ml VIAL IV ONE (16:33)
[2022-04-18] MEDS ORDERED: methylPREDNISolone SOD SUCC 40 mg/ml 1 ml VIAL ONE (16:35)
[2022-04-18] MEDS ORDERED: Furosemide 40 mg/4 ml IV VIAL IV SLOW PU ONE (16:56)
[2022-04-18] MEDS: methylPREDNISolone SOD SUCC 40 mg/ml 1 ml VIAL IV SCH (17:35)
[2022-04-18] MEDS: Albuterol/Ipratropium NEB.SOL (2.5/0.5 MG) 3 ML NEB.SOLN INH SCH ×3 (17:47→23:25)
[2022-04-18] MEDS: Azithromycin 500 mg/250 ml NS 500 MG/250 ML BAG IVPB SCH (21:56)
[2022-04-18] MEDS: Insulin GLARGINE 100 un/ml 10 ml VIAL SUBCUT SCH (22:13)
[2022-04-19] MEDS: Albuterol/Ipratropium NEB.SOL (2.5/0.5 MG) 3 ML NEB.SOLN INH SCH ×6 (03:08→23:50)
[2022-04-19] MEDS: methylPREDNISolone SOD SUCC 40 mg/ml 1 ml VIAL IV SCH ×3 (03:47→17:26)
[2022-04-19] MEDS: ZOSYN 3.375 GM IV SCH ×4 (03:48→21:40)
[2022-04-19 06:25] LABS: Hematocrit 34 % (35-47); Mean Corpuscular HGB Conc 32 g/dL (31-36); Mean Corpuscular Hemoglobin 26 pg (27-31); Mean Corpuscular Volume 79 fL (80-97); Mean Platelet Volume 8.9 fL (7.4-10.4); Platelet Count 314 10^3/uL (150-450); Red Blood Count 4.31 10^6 /uL (3.70-4.87); Red Cell Distribution Width 15 % (10-15); White Blood Count 13.3 10^3/uL (3.5-10.8)
[2022-04-19 06:40] LABS: Calcium 8.9 mg/dL (8.6-10.3); Magnesium 1.9 mg/dL (1.9-2.7); Potassium 4.4 mmol/L (3.5-5.0); eGFR CKD-EPI 62.6 (>60)
[2022-04-19 07:22] LABS: ABS Lymphocytes 1.2 10^3/ul (1.0-4.8); ABS Monocytes 0.5 10^3/ul (0-0.8); ABS Neutrophils 11.6 10^3/ul (1.5-7.7); Lymphocyte % 8.9 %
[2022-04-19] MEDS: Mometasone/Formoter 200/5 MDI INH SCH ×2 (07:26→18:57)
[2022-04-19] MEDS: SPIRIVA Respimat (tiotropium) 2.5 mcg/inh Inhaler INH SCH (07:26)
[2022-04-19] MEDS: Enoxaparin 40 MG/0.4 ML SYR SUBCUT SCH (08:15)
[2022-04-19] MEDS: Polyethylene Glycol 3350 17 GM PACKET PO PRN (10:41)
[2022-04-19] MEDS: Magnesium Hydroxide LIQ 30 ML UDC PO PRN (21:40)
[2022-04-19] MEDS: Senna TAB 8.6 mg TAB PO PRN (21:41)
[2022-04-19] MEDS: Insulin GLARGINE 100 un/ml 10 ml VIAL SUBCUT SCH (21:41)
[2022-04-20] MEDS: methylPREDNISolone SOD SUCC 40 mg/ml 1 ml VIAL IV SCH ×3 (00:35→20:54)
[2022-04-20] MEDS: Albuterol/Ipratropium NEB.SOL (2.5/0.5 MG) 3 ML NEB.SOLN INH SCH ×4 (03:44→20:21)
[2022-04-20] MEDS: ZOSYN 3.375 GM IV SCH ×4 (04:28→23:25)
[2022-04-20 05:59] LABS: ABS Monocytes 0.3 10^3/ul (0-0.8); ABS Neutrophils 13.1 10^3/ul (1.5-7.7); Hematocrit 35 % (35-47); Hemoglobin 11.3 g/dL (12.0-16.0); Lymphocyte % 6.8 %; Mean Corpuscular HGB Conc 32 g/dL (31-36); Mean Corpuscular Hemoglobin 25 pg (27-31); Mean Corpuscular Volume 79 fL (80-97); Platelet Count 337 10^3/uL (150-450); Red Blood Count 4.45 10^6 /uL (3.70-4.87); Red Cell Distribution Width 16 % (10-15); White Blood Count 14.4 10^3/uL (3.5-10.8)
[2022-04-20 06:31] LABS: Calcium 8.7 mg/dL (8.6-10.3); Potassium 4.8 mmol/L (3.5-5.0); eGFR CKD-EPI 74.7 (>60)
[2022-04-20] MEDS: Mometasone/Formoter 200/5 MDI INH SCH ×2 (07:05→20:22)
[2022-04-20] MEDS: SPIRIVA Respimat (tiotropium) 2.5 mcg/inh Inhaler INH SCH (07:26)
[2022-04-20] MEDS: Enoxaparin 40 MG/0.4 ML SYR SUBCUT SCH (08:54)
[2022-04-20] MEDS: Insulin GLARGINE 100 un/ml 10 ml VIAL SUBCUT SCH (20:54)
[2022-04-20] MEDS: Senna TAB 8.6 mg TAB PO PRN (21:07)
[2022-04-20] MEDS: Magnesium Hydroxide LIQ 30 ML UDC PO PRN (21:07)
[2022-04-21] MEDS: Albuterol/Ipratropium NEB.SOL (2.5/0.5 MG) 3 ML NEB.SOLN INH SCH ×2 (00:28→08:57)
[2022-04-21 05:57] LABS: Hematocrit 34 % (35-47); Mean Corpuscular HGB Conc 32 g/dL (31-36); Mean Corpuscular Hemoglobin 25 pg (27-31); Mean Corpuscular Volume 79 fL (80-97); Mean Platelet Volume 8.7 fL (7.4-10.4); Platelet Count 323 10^3/uL (150-450); Red Blood Count 4.34 10^6 /uL (3.70-4.87); Red Cell Distribution Width 16 % (10-15); White Blood Count 15.9 10^3/uL (3.5-10.8)
[2022-04-21] MEDS: ZOSYN 3.375 GM IV SCH ×4 (06:02→22:00)
[2022-04-21 06:14] LABS: Calcium 8.3 mg/dL (8.6-10.3); Potassium 4.9 mmol/L (3.5-5.0)
[2022-04-21 06:28] LABS: ABS Basophils 0.1 10^3/ul (0-0.2); ABS Lymphocytes 1.4 10^3/ul (1.0-4.8); ABS Monocytes 0.6 10^3/ul (0-0.8); ABS Neutrophils 13.9 10^3/ul (1.5-7.7); Lymphocyte % 8.5 %
[2022-04-21] MEDS ORDERED: Albuterol/Ipratropium NEB.SOL (2.5/0.5 MG) 3 ML NEB.SOLN INH PRN (08:33)
[2022-04-21] MEDS ORDERED: Albuterol HFA INHALER 8 gm MDI INH SCH (08:35)
[2022-04-21] MEDS: Magnesium Hydroxide LIQ 30 ML UDC PO PRN (08:38)
[2022-04-21] MEDS: Polyethylene Glycol 3350 17 GM PACKET PO PRN (08:38)
[2022-04-21] MEDS: methylPREDNISolone SOD SUCC 40 mg/ml 1 ml VIAL IV SCH (08:39)
[2022-04-21] MEDS: Enoxaparin 40 MG/0.4 ML SYR SUBCUT SCH (08:39)
[2022-04-21] MEDS: Mometasone/Formoter 200/5 MDI INH SCH ×2 (08:51→19:51)
[2022-04-21] MEDS: SPIRIVA Respimat (tiotropium) 2.5 mcg/inh Inhaler INH SCH (08:52)
[2022-04-21] MEDS: Albuterol HFA INHALER 8 gm MDI INH SCH ×4 (11:55→23:02)
[2022-04-21] MEDS: Insulin GLARGINE 100 un/ml 10 ml VIAL SUBCUT SCH (22:00)
[2022-04-22] MEDS: Albuterol HFA INHALER 8 gm MDI INH SCH ×6 (04:06→23:04)
[2022-04-22] MEDS: ZOSYN 3.375 GM IV SCH ×3 (05:00→16:29)
[2022-04-22] MEDS: Enoxaparin 40 MG/0.4 ML SYR SUBCUT SCH (07:54)
[2022-04-22] MEDS: SPIRIVA Respimat (tiotropium) 2.5 mcg/inh Inhaler INH SCH (07:54)
[2022-04-22] MEDS: Mometasone/Formoter 200/5 MDI INH SCH ×2 (07:55→19:56)
[2022-04-22] MEDS: Polyethylene Glycol 3350 17 GM PACKET PO SCH (07:55)
[2022-04-22] MEDS: Insulin GLARGINE 100 un/ml 10 ml VIAL SUBCUT SCH (21:56)
[2022-04-23] MEDS: Albuterol HFA INHALER 8 gm MDI INH SCH ×4 (03:05→15:50)
[2022-04-23 05:47] LABS: Hematocrit 37 % (35-47); Hemoglobin 11.7 g/dL (12.0-16.0); Mean Corpuscular HGB Conc 32 g/dL (31-36); Mean Corpuscular Hemoglobin 25 pg (27-31); Mean Corpuscular Volume 79 fL (80-97); Mean Platelet Volume 9.1 fL (7.4-10.4); Platelet Count 317 10^3/uL (150-450); Red Blood Count 4.61 10^6 /uL (3.70-4.87); Red Cell Distribution Width 16 % (10-15)
[2022-04-23 06:09] LABS: Calcium 8.7 mg/dL (8.6-10.3); Potassium 4.6 mmol/L (3.5-5.0); eGFR CKD-EPI 82.5 (>60)
[2022-04-23] MEDS: SPIRIVA Respimat (tiotropium) 2.5 mcg/inh Inhaler INH SCH (07:42)
[2022-04-23] MEDS: Mometasone/Formoter 200/5 MDI INH SCH (07:43)
[2022-04-23] MEDS: Enoxaparin 40 MG/0.4 ML SYR SUBCUT SCH (08:40)
[2022-04-23] MEDS: Polyethylene Glycol 3350 17 GM PACKET PO SCH (08:42)
[2022-04-23 08:56] LABS: ABS Lymphocytes 1.8 10^3/ul (1.0-4.8); ABS Monocytes 0.8 10^3/ul (0-0.8); ABS Neutrophils 14.4 10^3/ul (1.5-7.7); Eosinophil % 0.1 %; Lymphocyte % 10.7 %
[2022-04-23 12:29] VITALS: BP 136/70
== END 2022-04-23 16:20 | disposition home or self-care (01) | DRG 720 ==
LOC: ED 18:52 → SUATTDRO 21:50 → ICU 21:50 → MEDTELE 04-18 02:58
PROVIDERS: ADMIT Hospitalist; ATTEND Internal Medicine

== ENCOUNTER 2023-08-11 00:12 | Inpatient (IN) ==
[2023-08-11] MEDS ORDERED: Polyethylene Glycol 3350 17 GM PACKET PO PRN (00:58)
[2023-08-11] MEDS ORDERED: Senna TAB 8.6 mg TAB PO PRN (00:58)
[2023-08-11] MEDS ORDERED: Enoxaparin 40 MG/0.4 ML SYR SUBCUT SCH (01:00)
[2023-08-11 01:35] LABS: PO2 Arterial 69 mmHg (80-100)
[2023-08-11 01:44] LABS: PCO2 Arterial 84 mmHg (35-45)
[2023-08-11 01:51] LABS: ABS Basophils 0.1 10^3/uL (0.0-0.1); ABS Lymphocytes 0.6 10^3/uL (1.0-4.8); ABS Monocytes 0.1 10^3/uL (0.0-0.9); ABS Neutrophils 12.1 10^3/uL (1.5-7.6); ABS Nucleated RBC 0.01 10^3/ul; Eosinophil % 0.1 %; Hemoglobin 10.1 g/dL (11.5-14.3); Lymphocyte % 4.9 %; Mean Corpuscular Hemoglobin 24.8 pg (27-33); Mean Corpuscular Hgb Conc 31.7 g/dL (31-36); Mean Corpuscular Volume 78.2 fL (80-97); Mean Platelet Volume 8.8 fL (7.5-11.2); Platelet Count 274 10^3/uL (150-450); Red Blood Count 4.09 10^6/uL (3.63-4.92); Red Cell Distribution Width 14.7 % (12-17); White Blood Count 12.9 10^3/uL (3.8-11.8)
[2023-08-11 01:58] LABS: Albumin 3.3 g/dL (3.2-5.2); Calcium 8.9 mg/dL (8.6-10.3); Chloride 89 mmol/L (101-111); Magnesium 1.7 mg/dL (1.9-2.7); Potassium 5.3 mmol/L (3.5-5.0); Sodium 131 mmol/L (135-145)
[2023-08-11 02:04] LABS: ALT 5 U/L (7-52); AST 9 U/L (13-39); Alkaline Phosphatase 101 U/L (35-149); Blood Urea Nitrogen 20 mg/dL (6-24); C Reactive Protein 26.36 mg/L (<8.01); Creatinine, Serum 0.85 mg/dL (0.51-0.95); Globulin 3.2 g/dL (2-4); Glucose 236 mg/dL (70-100); Total Protein 6.5 g/dL (6.4-8.9); eGFR CKD-EPI 76.9 (>60)
[2023-08-11 02:05] LABS: CO2 Carbon Dioxide 42 mmol/L (22-32)
[2023-08-11] MEDS ORDERED: Dextrose 50% Syringe 50 ml 25 GM/50 ML SYRINGE IV PUSH PRN (02:15)
[2023-08-11] MEDS ORDERED: Magnesium Sulfate IV 3 GM in NS 0.9% 100 ml BAG 100 ML IVPB ONE (02:16)
[2023-08-11] MEDS ORDERED: Enoxaparin 40 MG/0.4 ML SYR ONE (02:21)
[2023-08-11] MEDS: Azithromycin 500 mg/250 ml NS 500 MG/250 ML BAG IVPB SCH (02:45)
[2023-08-11] MEDS ORDERED: Furosemide 40 mg/4 ml IV VIAL IV SLOW PU ONE (02:56)
[2023-08-11] MEDS ORDERED: Piperacillin/Tazobac 3.375 BAG 3.375 GM/100 ML BAG IV ONE (02:56)
[2023-08-11] MEDS ORDERED: Zosyn per Pharmacy NOTE FOLLOW UP SCH (03:00)
[2023-08-11 03:37] LABS: Urine Appearance Cloudy; Urine Bilirubin Negative (Negative); Urine Blood Negative (Negative); Urine Color Yellow; Urine Glucose 1+(50 mg/dL) (Negative); Urine Ketones Negative (Negative); Urine Nitrite Negative (Negative); Urine Protein 2+(100 mg/dL) (Negative); Urine Specific Gravity 1.021 (1.002-1.030); Urine Urobilinogen Negative (Negative)
[2023-08-11] MEDS ORDERED: methylPREDNISolone SOD SUCC 125 mg 2 ML VIAL IV ONE (03:37)
[2023-08-11] MEDS ORDERED: methylPREDNISolone SOD SUCC 125 mg 2 ML VIAL ONE (03:44)
[2023-08-11] MEDS: Albuterol/Ipratropium NEB.SOL (2.5/0.5 MG) 3 ML NEB.SOLN INH PRN ×3 (03:49→20:24)
[2023-08-11 03:57] LABS: Urine Bacteria 3+ (Absent); Urine Red Blood Cell 2+(6-10/hpf) (Absent); Urine Squamous Epithelial Cell Present (Absent); Urine White Blood Cell 3+(>20/hpf) (Absent)
[2023-08-11 04:15] LABS: Resp Rate 12
[2023-08-11 04:17] LABS: PO2 Arterial 85 mmHg (80-100)
[2023-08-11 04:26] LABS: PCO2 Arterial 78 mmHg (35-45)
[2023-08-11] MEDS: Enoxaparin 40 MG/0.4 ML SYR SUBCUT SCH (05:03)
[2023-08-11] MEDS: ZOSYN 3.375 GM Q8H per EXTENDED INFUSION IV SCH ×3 (08:08→23:32)
[2023-08-11] MEDS: methylPREDNISolone SOD SUCC 40 mg/ml 1 ml VIAL IV SCH ×2 (12:25→17:02)
[2023-08-11] MEDS ORDERED: Lorazepam PYXIS KEY PRN (13:09)
[2023-08-11] MEDS ORDERED: LORazepam 2 mg VIAL 1 ml IV PUSH ONE (13:09)
[2023-08-11] MEDS: Polyethylene Glycol 3350 17 GM PACKET PO SCH (13:12)
[2023-08-11] MEDS: Nicotine GUM 4MG FRUIT FLAVOR PO PRN (13:18)
[2023-08-11] MEDS: Albuterol/Ipratropium NEB.SOL (2.5/0.5 MG) 3 ML NEB.SOLN INH SCH (22:34)
[2023-08-12] MEDS ORDERED: Albuterol/Ipratropium NEB.SOL (2.5/0.5 MG) 3 ML NEB.SOLN INH SCH
[2023-08-12] MEDS: Albuterol/Ipratropium NEB.SOL (2.5/0.5 MG) 3 ML NEB.SOLN INH SCH ×6 (02:23→21:39)
[2023-08-12] MEDS: Azithromycin 500 mg/250 ml NS 500 MG/250 ML BAG IVPB SCH (03:04)
[2023-08-12 04:32] LABS: ABS Lymphocytes 0.9 10^3/uL (1.0-4.8); ABS Monocytes 0.6 10^3/uL (0.0-0.9); ABS Nucleated RBC 0.01 10^3/ul; Hematocrit 28.4 % (35-45); Hemoglobin 9.3 g/dL (11.5-14.3); Lymphocyte % 7.8 %; Mean Corpuscular Hemoglobin 24.8 pg (27-33); Mean Corpuscular Hgb Conc 32.8 g/dL (31-36); Mean Corpuscular Volume 75.5 fL (80-97); Mean Platelet Volume 8.6 fL (7.5-11.2); Nucleated Red Blood Cells % 0.1 /100 WBC (0.0-0.4); Platelet Count 278 10^3/uL (150-450); Red Blood Count 3.77 10^6/uL (3.63-4.92); Red Cell Distribution Width 14.7 % (12-17); White Blood Count 11.5 10^3/uL (3.8-11.8)
[2023-08-12 04:52] LABS: Calcium 8.6 mg/dL (8.6-10.3); Creatinine, Serum 0.83 mg/dL (0.51-0.95); Magnesium 1.8 mg/dL (1.9-2.7); eGFR CKD-EPI 79.2 (>60)
[2023-08-12] MEDS: Enoxaparin 40 MG/0.4 ML SYR SUBCUT SCH (05:27)
[2023-08-12] MEDS ORDERED: Magnesium Sulfate 2 gm BAG 2 GM/50 ML BAG IVPB ONE (05:47)
[2023-08-12] MEDS: CMCS: FLUTICAS/UMECLI/VILANT 200-62.5-25 MDI (NF) INH SCH (07:13)
[2023-08-12] MEDS ORDERED: Sulfur Hexaflouride MICROSPHR 25 MG VIAL ONE (08:24)
[2023-08-12] MEDS: Polyethylene Glycol 3350 17 GM PACKET PO SCH (09:11)
[2023-08-12] MEDS: ZOSYN 3.375 GM Q8H per EXTENDED INFUSION IV SCH (09:18)
[2023-08-12] MEDS ORDERED: Albuterol 2.5mg/3 ml (0.083%) NEB.SOLN INH ONE (09:21)
[2023-08-12] MEDS: Ondansetron 4 mg VIAL 2 MG/ML 2 ml VIAL IV PRN (15:25)
[2023-08-12] MEDS: Nicotine GUM 4MG FRUIT FLAVOR PO PRN (15:25)
[2023-08-12] MEDS: Albuterol 2.5mg/3 ml (0.083%) NEB.SOLN INH PRN ×2 (15:26→19:23)
[2023-08-12] MEDS: cefTRIAXone 1 gm/50 mL D5W 1 GM/50 ML BAG IV SCH (16:39)
[2023-08-13] MEDS: Azithromycin 500 mg/250 ml NS 500 MG/250 ML BAG IVPB SCH (02:39)
[2023-08-13] MEDS: Enoxaparin 40 MG/0.4 ML SYR SUBCUT SCH (05:06)
[2023-08-13 05:24] LABS: ABS Basophils 0.1 10^3/uL (0.0-0.1); ABS Lymphocytes 2.4 10^3/uL (1.0-4.8); ABS Monocytes 1.2 10^3/uL (0.0-0.9); Eosinophil % 0.1 %; Hematocrit 29.4 % (35-45); Hemoglobin 9.6 g/dL (11.5-14.3); Lymphocyte % 17.3 %; Mean Corpuscular Hemoglobin 24.9 pg (27-33); Mean Corpuscular Hgb Conc 32.7 g/dL (31-36); Mean Corpuscular Volume 76.3 fL (80-97); Mean Platelet Volume 8.5 fL (7.5-11.2); Platelet Count 298 10^3/uL (150-450); Red Blood Count 3.86 10^6/uL (3.63-4.92); Red Cell Distribution Width 14.8 % (12-17); White Blood Count 13.7 10^3/uL (3.8-11.8)
[2023-08-13 05:34] LABS: Calcium 8.6 mg/dL (8.6-10.3); Creatinine, Serum 0.83 mg/dL (0.51-0.95); Potassium 4.4 mmol/L (3.5-5.0); eGFR CKD-EPI 79.2 (>60)
[2023-08-13] MEDS: Albuterol/Ipratropium NEB.SOL (2.5/0.5 MG) 3 ML NEB.SOLN INH SCH ×3 (06:49→19:27)
[2023-08-13] MEDS: CMCS: FLUTICAS/UMECLI/VILANT 200-62.5-25 MDI (NF) INH SCH (08:40)
[2023-08-13] MEDS: Polyethylene Glycol 3350 17 GM PACKET PO SCH (09:12)
[2023-08-13] MEDS ORDERED: Dextrose 50% Syringe 50 ml 25 GM/50 ML SYRINGE IV PUSH PRN (12:29)
[2023-08-13] MEDS ORDERED: Labetalol IV 5 MG/ML 20 ml VIAL IV PUSH ONE (13:13)
[2023-08-13] MEDS: cefTRIAXone 1 gm/50 mL D5W 1 GM/50 ML BAG IV SCH (16:19)
[2023-08-13] MEDS: Insulin GLARGINE 100 un/ml 10 ml VIAL SUBCUT SCH (20:51)
[2023-08-14 04:41] LABS: ABS Basophils 0.1 10^3/uL (0.0-0.1); ABS Lymphocytes 1.8 10^3/uL (1.0-4.8); ABS Neutrophils 6.1 10^3/uL (1.5-7.6); Eosinophil % 0.1 %; Hematocrit 28.3 % (35-45); Hemoglobin 9.2 g/dL (11.5-14.3); Lymphocyte % 19.6 %; Mean Corpuscular Hemoglobin 25.1 pg (27-33); Mean Corpuscular Hgb Conc 32.5 g/dL (31-36); Mean Corpuscular Volume 77.1 fL (80-97); Mean Platelet Volume 8.4 fL (7.5-11.2); Platelet Count 262 10^3/uL (150-450); Red Blood Count 3.67 10^6/uL (3.63-4.92); Red Cell Distribution Width 14.8 % (12-17)
[2023-08-14 05:05] LABS: Calcium 8.6 mg/dL (8.6-10.3); Creatinine, Serum 0.72 mg/dL (0.51-0.95); Magnesium 1.8 mg/dL (1.9-2.7); Potassium 4.6 mmol/L (3.5-5.0); eGFR CKD-EPI 93.9 (>60)
[2023-08-14] MEDS: Enoxaparin 40 MG/0.4 ML SYR SUBCUT SCH (05:33)
[2023-08-14] MEDS: Albuterol/Ipratropium NEB.SOL (2.5/0.5 MG) 3 ML NEB.SOLN INH SCH ×3 (07:17→19:25)
[2023-08-14] MEDS: CMCS: FLUTICAS/UMECLI/VILANT 200-62.5-25 MDI (NF) INH SCH (07:24)
[2023-08-14] MEDS ORDERED: Magnesium Sulfate 2 gm BAG 2 GM/50 ML BAG IVPB ONE (08:39)
[2023-08-14] MEDS: Polyethylene Glycol 3350 17 GM PACKET PO SCH (09:37)
[2023-08-14] MEDS ORDERED: hydrALAZINE 20 mg/ml 1 ML Vial IV IV SLOW PU ONE ×2 (13:39→13:41)
[2023-08-14] MEDS: cefTRIAXone 1 gm/50 mL D5W 1 GM/50 ML BAG IV SCH (16:32)
[2023-08-14] MEDS: Ondansetron 4 mg VIAL 2 MG/ML 2 ml VIAL IV PRN (18:18)
[2023-08-14] MEDS: Insulin GLARGINE 100 un/ml 10 ml VIAL SUBCUT SCH (20:11)
[2023-08-15 05:24] LABS: ABS Basophils 0.1 10^3/uL (0.0-0.1); ABS Eosinophils 0.1 10^3/uL (0.0-0.5); ABS Lymphocytes 2.2 10^3/uL (1.0-4.8); ABS Monocytes 0.9 10^3/uL (0.0-0.9); ABS Neutrophils 7.7 10^3/uL (1.5-7.6); ABS Nucleated RBC 0.01 10^3/ul; Eosinophil % 0.6 %; Hematocrit 29.7 % (35-45); Hemoglobin 9.7 g/dL (11.5-14.3); Mean Corpuscular Hgb Conc 32.7 g/dL (31-36); Mean Corpuscular Volume 76.5 fL (80-97); Mean Platelet Volume 8.6 fL (7.5-11.2); Nucleated Red Blood Cells % 0.1 /100 WBC (0.0-0.4); Platelet Count 257 10^3/uL (150-450); Red Blood Count 3.88 10^6/uL (3.63-4.92); Red Cell Distribution Width 14.6 % (12-17); White Blood Count 10.9 10^3/uL (3.8-11.8)
[2023-08-15 05:47] LABS: Blood Urea Nitrogen 18 mg/dL (6-24); Calcium 8.7 mg/dL (8.6-10.3); Chloride 89 mmol/L (101-111); Creatinine, Serum 0.68 mg/dL (0.51-0.95); Glucose 110 mg/dL (70-100); Magnesium 1.9 mg/dL (1.9-2.7); Potassium 4.8 mmol/L (3.5-5.0); Sodium 135 mmol/L (135-145); eGFR CKD-EPI 97.8 (>60)
[2023-08-15] MEDS ORDERED: hydrALAZINE 20 mg/ml 1 ML Vial IV IV SLOW PU ONE (05:48)
[2023-08-15] MEDS: Enoxaparin 40 MG/0.4 ML SYR SUBCUT SCH (05:55)
[2023-08-15 06:37] LABS: CO2 Carbon Dioxide > 45 mmol/L (22-32)
[2023-08-15] MEDS: Albuterol/Ipratropium NEB.SOL (2.5/0.5 MG) 3 ML NEB.SOLN INH SCH ×3 (07:02→19:26)
[2023-08-15] MEDS: CMCS: FLUTICAS/UMECLI/VILANT 200-62.5-25 MDI (NF) INH SCH (07:30)
[2023-08-15 08:39] LABS: PO2 Arterial 80 mmHg (80-100)
[2023-08-15 08:40] LABS: PCO2 Arterial 89 mmHg (35-45)
[2023-08-15] MEDS ORDERED: Iodixanol (CONTRAST) 320 MG/ML 100 ML SDV IV ONE (08:56)
[2023-08-15] MEDS: Polyethylene Glycol 3350 17 GM PACKET PO SCH (09:10)
[2023-08-15] MEDS: cefTRIAXone 1 gm/50 mL D5W 1 GM/50 ML BAG IV SCH (17:56)
[2023-08-15 18:26] LABS: Glucose Confirmatory 410 mg/dL (70-100)
[2023-08-15] MEDS: Insulin GLARGINE 100 un/ml 10 ml VIAL SUBCUT SCH (19:48)
[2023-08-16] MEDS ORDERED: hydrALAZINE 20 mg/ml 1 ML Vial IV IV SLOW PU ONE ×2 (05:11→11:46)
[2023-08-16] MEDS: Enoxaparin 40 MG/0.4 ML SYR SUBCUT SCH (05:32)
[2023-08-16 05:36] LABS: Calcium 9.1 mg/dL (8.6-10.3); Creatinine, Serum 0.71 mg/dL (0.51-0.95); Magnesium 1.7 mg/dL (1.9-2.7); Potassium 4.4 mmol/L (3.5-5.0); eGFR CKD-EPI 95.5 (>60)
[2023-08-16] MEDS: Albuterol/Ipratropium NEB.SOL (2.5/0.5 MG) 3 ML NEB.SOLN INH SCH ×3 (07:22→19:25)
[2023-08-16] MEDS: CMCS: FLUTICAS/UMECLI/VILANT 200-62.5-25 MDI (NF) INH SCH (07:22)
[2023-08-16] MEDS: Polyethylene Glycol 3350 17 GM PACKET PO SCH (08:17)
[2023-08-16] MEDS ORDERED: Magnesium Sulfate 2 gm BAG 2 GM/50 ML BAG IVPB ONE (12:04)
[2023-08-16] MEDS ORDERED: hydrALAZINE 20 mg/ml 1 ML Vial IV IV SLOW PU PRN (13:03)
[2023-08-16] MEDS ORDERED: Morphine 2 MG/ML SYRINGE IV PRN (15:26)
[2023-08-16] MEDS: cefTRIAXone 1 gm/50 mL D5W 1 GM/50 ML BAG IV SCH (16:55)
[2023-08-16] MEDS: Insulin GLARGINE 100 un/ml 10 ml VIAL SUBCUT SCH (22:34)
[2023-08-17] MEDS: Enoxaparin 40 MG/0.4 ML SYR SUBCUT SCH (06:38)
[2023-08-17 06:46] LABS: Calcium 8.9 mg/dL (8.6-10.3); Creatinine, Serum 0.73 mg/dL (0.51-0.95); Magnesium 1.9 mg/dL (1.9-2.7); Potassium 4.3 mmol/L (3.5-5.0); eGFR CKD-EPI 92.3 (>60)
[2023-08-17] MEDS: Albuterol/Ipratropium NEB.SOL (2.5/0.5 MG) 3 ML NEB.SOLN INH SCH ×3 (07:38→19:39)
[2023-08-17] MEDS: Polyethylene Glycol 3350 17 GM PACKET PO SCH (08:12)
[2023-08-17] MEDS: CMCS: FLUTICAS/UMECLI/VILANT 200-62.5-25 MDI (NF) INH SCH (08:46)
[2023-08-17] MEDS: Insulin GLARGINE 100 un/ml 10 ml VIAL SUBCUT SCH (20:52)
[2023-08-18 05:42] LABS: ABS Basophils 0.1 10^3/uL (0.0-0.1); ABS Eosinophils 0.4 10^3/uL (0.0-0.5); ABS Lymphocytes 3.4 10^3/uL (1.0-4.8); ABS Neutrophils 9.5 10^3/uL (1.5-7.6); Hematocrit 32.8 % (35-45); Hemoglobin 10.6 g/dL (11.5-14.3); Lymphocyte % 23.4 %; Mean Corpuscular Hemoglobin 24.6 pg (27-33); Mean Corpuscular Hgb Conc 32.2 g/dL (31-36); Mean Corpuscular Volume 76.4 fL (80-97); Mean Platelet Volume 8.8 fL (7.5-11.2); Platelet Count 289 10^3/uL (150-450); Red Blood Count 4.29 10^6/uL (3.63-4.92); White Blood Count 14.3 10^3/uL (3.8-11.8)
[2023-08-18 05:58] LABS: Calcium 8.5 mg/dL (8.6-10.3); Creatinine, Serum 0.75 mg/dL (0.51-0.95); Potassium 4.7 mmol/L (3.5-5.0); eGFR CKD-EPI 89.4 (>60)
[2023-08-18] MEDS: Enoxaparin 40 MG/0.4 ML SYR SUBCUT SCH (06:44)
[2023-08-18] MEDS: CMCS: FLUTICAS/UMECLI/VILANT 200-62.5-25 MDI (NF) INH SCH ×2 (06:54→07:19)
[2023-08-18] MEDS: Albuterol/Ipratropium NEB.SOL (2.5/0.5 MG) 3 ML NEB.SOLN INH SCH ×3 (06:54→20:51)
[2023-08-18] MEDS: Polyethylene Glycol 3350 17 GM PACKET PO SCH (09:36)
[2023-08-19] MEDS: Enoxaparin 40 MG/0.4 ML SYR SUBCUT SCH (05:59)
[2023-08-19] MEDS: Polyethylene Glycol 3350 17 GM PACKET PO SCH (08:43)
[2023-08-19] MEDS: CMCS: FLUTICAS/UMECLI/VILANT 200-62.5-25 MDI (NF) INH SCH (09:23)
[2023-08-19] MEDS: Albuterol/Ipratropium NEB.SOL (2.5/0.5 MG) 3 ML NEB.SOLN INH SCH ×2 (09:23→12:38)
[2023-08-19 13:48] VITALS: BP 124/65
== END 2023-08-19 15:15 | disposition home or self-care (01) | DRG 133 ==
LOC: SUATTDRO 00:56 → ICU 00:56 → MEDTELE 08-17 05:40
PROVIDERS: ADMIT Internal Medicine; ATTEND Internal Medicine

== ENCOUNTER 2024-11-18 08:08 | Inpatient (IN) ==
[2024-11-18 11:33] LABS: ABS Basophils 0.1 10^3/uL (0.0-0.1); ABS Lymphocytes 0.7 10^3/uL (1.0-4.8); ABS Monocytes 0.3 10^3/uL (0.0-0.9); ABS Neutrophils 10.3 10^3/uL (1.5-7.6); Hematocrit 24.7 % (35-45); Hemoglobin 8.1 g/dL (11.5-14.3); Lymphocyte % 6.5 %; Mean Corpuscular Hemoglobin 26.5 pg (27-33); Mean Corpuscular Hgb Conc 32.9 g/dL (31-36); Mean Corpuscular Volume 80.6 fL (80-97); Mean Platelet Volume 8.5 fL (7.5-11.2); Platelet Count 269 10^3/uL (150-450); Red Blood Count 3.06 10^6/uL (3.63-4.92); Red Cell Distribution Width 13.8 % (12-17); White Blood Count 11.4 10^3/uL (3.8-11.8)
[2024-11-18] MEDS: Propofol 10 mg/ml 100 ML BTL 1,000 MG/100 ML BTL IV SCH (11:34)
[2024-11-18 12:12] LABS: Albumin 3.2 g/dL (3.5-5.7); Albumin/Globulin Ratio 1.2 (1-3); Calcium 7.9 mg/dL (8.6-10.3); Creatinine, Serum 1.32 mg/dL (0.51-0.95); Globulin 2.7 g/dL (2-4); INR 1.21 (0.85-1.14); Magnesium 1.6 mg/dL (1.9-2.7); Phosphorus 5.1 mg/dL (2.5-5.0); Potassium 4.8 mmol/L (3.5-5.0); Total Bilirubin 0.3 mg/dL (0.2-1.0); Total Protein 5.9 g/dL (6.4-8.9); eGFR CKD-EPI 45.1 (>60)
[2024-11-18] MEDS: Chlorhexidine MOUTHWASH 0.12% 15 ML UDC TOPICAL SCH (12:15)
[2024-11-18] MEDS: methylPREDNISolone SOD SUCC 40 mg/ml 1 ml VIAL IV SCH (12:15)
[2024-11-18] MEDS: Furosemide 40 mg/4 ml IV VIAL IV SLOW PU ONE (12:15)
[2024-11-18] MEDS ORDERED: Dextrose 50% Syringe 50 ml 25 GM/50 ML SYRINGE IV PUSH PRN (12:19)
[2024-11-18] MEDS: Azithromycin 500 mg/250 ml NS 500 MG/250 ML BAG IVPB SCH (12:27)
[2024-11-18 13:25] LABS: Resp Rate 20
[2024-11-18 13:28] LABS: PCO2 Arterial 57 mmHg (35-45)
[2024-11-18 13:29] LABS: PO2 Arterial 59 mmHg (80-100)
[2024-11-18] MEDS: Magnesium Sulf 4 GM/100 ML IV 4,000 MG/100 ML BAG IVPB ONE (13:33)
[2024-11-18] MEDS: Piperacillin/Tazobac 3.375 BAG 3.375 GM/100 ML BAG IV ONE (14:32)
[2024-11-18] MEDS: fentaNYL INFUSION 50 mcg/mL VL 2,500 MCG/50 ML VIAL IV SCH (14:32)
[2024-11-18] MEDS ORDERED: Zosyn per Pharmacy NOTE FOLLOW UP SCH (15:00)
[2024-11-18] MEDS: Furosemide 100 mg/10 ml IV 100 MG in NS 0.9% 100 ml BAG 90 ML IV SCH (15:23)
[2024-11-18] MEDS: ZOSYN 3.375 GM Q8H per EXTENDED INFUSION IV SCH (17:24)
[2024-11-18 17:58] LABS: Calcium 8.5 mg/dL (8.6-10.3); Creatinine, Serum 1.46 mg/dL (0.51-0.95); Potassium 4.4 mmol/L (3.5-5.0); eGFR CKD-EPI 39.9 (>60)
[2024-11-18] MEDS: Enoxaparin 40 MG/0.4 ML SYR SUBCUT SCH (20:46)
[2024-11-18] MEDS: Famotidine IV 10 MG/ML 2 ml VIAL (20 mg) IV SLOW PU SCH (20:46)
[2024-11-19 05:17] LABS: ABS Lymphocytes 0.8 10^3/uL (1.0-4.8); ABS Monocytes 0.4 10^3/uL (0.0-0.9); ABS Neutrophils 13.1 10^3/uL (1.5-7.6); ABS Nucleated RBC 0.01 10^3/ul; Hematocrit 23.8 % (35-45); Lymphocyte % 5.9 %; Mean Corpuscular Hgb Conc 33.8 g/dL (31-36); Mean Corpuscular Volume 79.9 fL (80-97); Mean Platelet Volume 8.6 fL (7.5-11.2); Platelet Count 291 10^3/uL (150-450); Red Blood Count 2.98 10^6/uL (3.63-4.92); Red Cell Distribution Width 13.8 % (12-17); White Blood Count 14.3 10^3/uL (3.8-11.8)
[2024-11-19 05:49] LABS: Calcium 8.2 mg/dL (8.6-10.3); Creatinine, Serum 1.43 mg/dL (0.51-0.95); Magnesium 2.5 mg/dL (1.9-2.7); Potassium 4.5 mmol/L (3.5-5.0)
[2024-11-19] MEDS: Sulfur Hexaflouride MICROSPHR 25 MG VIAL IV PRN (08:59)
[2024-11-19] MEDS: Bumetanide IV 10 MG in Premix IV 0 ML IV SCH (09:21)
[2024-11-19 09:28] LABS: PCO2 Arterial 54 mmHg (35-45); PO2 Arterial 85 mmHg (80-100)
[2024-11-19 11:12] LABS: Urine Appearance Clear; Urine Bilirubin Negative (Negative); Urine Blood Negative (Negative); Urine Color Colorless; Urine Glucose Negative (Negative); Urine Ketones Negative (Negative); Urine Nitrite Negative (Negative); Urine Protein Trace (Negative); Urine Specific Gravity 1.011 (1.002-1.030); Urine Urobilinogen Negative (Negative)
[2024-11-19 12:33] LABS: Calcium 8.2 mg/dL (8.6-10.3); Creatinine, Serum 1.43 mg/dL (0.51-0.95); Potassium 4.5 mmol/L (3.5-5.0)
[2024-11-19 17:47] LABS: Calcium 8.6 mg/dL (8.6-10.3); Creatinine, Serum 1.45 mg/dL (0.51-0.95); Potassium 4.3 mmol/L (3.5-5.0); eGFR CKD-EPI 40.3 (>60)
[2024-11-20 02:04] LABS: Calcium 8.5 mg/dL (8.6-10.3); Creatinine, Serum 1.54 mg/dL (0.51-0.95); eGFR CKD-EPI 37.5 (>60)
[2024-11-20 06:08] LABS: ABS Lymphocytes 0.9 10^3/uL (1.0-4.8); ABS Monocytes 0.4 10^3/uL (0.0-0.9); Eosinophil % 0.3 %; Hematocrit 26.9 % (35-45); Hemoglobin 9.4 g/dL (11.5-14.3); Lymphocyte % 6.7 %; Mean Corpuscular Hemoglobin 27.7 pg (27-33); Mean Corpuscular Hgb Conc 34.7 g/dL (31-36); Mean Corpuscular Volume 79.7 fL (80-97); Mean Platelet Volume 8.6 fL (7.5-11.2); Platelet Count 327 10^3/uL (150-450); Red Blood Count 3.38 10^6/uL (3.63-4.92); Red Cell Distribution Width 14.1 % (12-17); White Blood Count 13.4 10^3/uL (3.8-11.8)
[2024-11-20 06:54] LABS: Anion Gap 11 mmol/L (2-16); Blood Urea Nitrogen 53 mg/dL (6-24); CO2 Carbon Dioxide 39 mmol/L (22-32); Calcium 8.4 mg/dL (8.6-10.3); Chloride 91 mmol/L (101-111); Glucose 271 mg/dL (70-100); Potassium 4.3 mmol/L (3.5-5.0); Sodium 141 mmol/L (135-145); eGFR CKD-EPI 35.8 (>60)
[2024-11-20 07:05] LABS: Phosphorus 4.9 mg/dL (2.5-5.0)
[2024-11-20] MEDS: Bumetanide IV 10 MG in Premix IV 0 ML IV SCH ×2 (07:30→18:59)
[2024-11-20] MEDS: acetaZOLAMIDE IV 500 MG in NS 0.9% 50 ML 50 ML IVPB ONE (11:22)
[2024-11-20 13:57] LABS: Albumin 3.4 g/dL (3.5-5.7); Albumin/Globulin Ratio 1.2 (1-3); Direct Bilirubin 0.1 mg/dL (0.03-0.18); Globulin 2.8 g/dL (2-4); Indirect Bilirubin 0.2 mg/dL (0.3-1.0); Total Bilirubin 0.3 mg/dL (0.2-1.0); Total Protein 6.2 g/dL (6.4-8.9)
[2024-11-20 16:50] LABS: Calcium 8.2 mg/dL (8.6-10.3); Creatinine, Serum 2.02 mg/dL (0.51-0.95); Magnesium 2.1 mg/dL (1.9-2.7); Potassium 4.2 mmol/L (3.5-5.0); eGFR CKD-EPI 27.1 (>60)
[2024-11-20 18:01] LABS: Albumin 3.6 g/dL (3.5-5.7); Albumin/Globulin Ratio 1.2 (1-3); Direct Bilirubin 0.1 mg/dL (0.03-0.18); Indirect Bilirubin 0.3 mg/dL (0.3-1.0); Total Bilirubin 0.4 mg/dL (0.2-1.0); Total Protein 6.6 g/dL (6.4-8.9)
[2024-11-20] MEDS: Albuterol/Ipratropium NEB.SOL (2.5/0.5 MG) 3 ML NEB.SOLN INH PRN (20:03)
[2024-11-20] MEDS: Lactulose 30 ml UDC PO SCH (21:20)
[2024-11-20] MEDS: Insulin GLARGINE 100 un/ml 10 ml VIAL SUBCUT SCH (21:29)
[2024-11-21 04:27] LABS: Hematocrit 28.4 % (35-45); Hemoglobin 9.4 g/dL (11.5-14.3); Mean Corpuscular Hemoglobin 26.6 pg (27-33); Mean Corpuscular Hgb Conc 33.1 g/dL (31-36); Mean Corpuscular Volume 80.1 fL (80-97); Mean Platelet Volume 8.8 fL (7.5-11.2); Platelet Count 316 10^3/uL (150-450); Red Blood Count 3.54 10^6/uL (3.63-4.92); Red Cell Distribution Width 13.7 % (12-17); White Blood Count 15.3 10^3/uL (3.8-11.8)
[2024-11-21 05:17] LABS: Magnesium 2.2 mg/dL (1.9-2.7)
[2024-11-21 05:18] LABS: Calcium 7.8 mg/dL (8.6-10.3); Creatinine, Serum 1.87 mg/dL (0.51-0.95); Potassium 3.6 mmol/L (3.5-5.0); eGFR CKD-EPI 29.7 (>60)
[2024-11-21 07:04] LABS: ABS Basophils 0.1 10^3/uL (0.0-0.1); ABS Lymphocytes 3.3 10^3/uL (1.0-4.8); ABS Monocytes 1.6 10^3/uL (0.0-0.9); ABS Neutrophils 10.3 10^3/uL (1.5-7.6); ABS Nucleated RBC 0.01 10^3/ul; Eosinophil % 0.1 %; Lymphocyte % 21.3 %; Nucleated Red Blood Cells % 0.1 %/100WBC (0.0-0.8)
[2024-11-21] MEDS: Polyethylene Glycol 3350 17 GM PACKET ONE (07:28)
[2024-11-21] MEDS ORDERED: Polyethylene Glycol 3350 17 GM PACKET PO PRN (09:16)
[2024-11-21] MEDS: Isosorbide Mononit ER 30mg TAB PO SCH (10:27)
[2024-11-21] MEDS: cefTRIAXone 1 gm/50 mL D5W 1 GM/50 ML BAG IV SCH (10:28)
[2024-11-21] MEDS: Insulin GLARGINE 100 un/ml 10 ml VIAL SUBCUT SCH (21:39)
[2024-11-22 08:50] LABS: ABS Basophils 0.1 10^3/uL (0.0-0.1); ABS Eosinophils 0.4 10^3/uL (0.0-0.5); ABS Lymphocytes 4.7 10^3/uL (1.0-4.8); ABS Monocytes 1.1 10^3/uL (0.0-0.9); ABS Neutrophils 8.5 10^3/uL (1.5-7.6); Eosinophil % 2.9 %; Hematocrit 29.4 % (35-45); Hemoglobin 9.7 g/dL (11.5-14.3); Lymphocyte % 31.6 %; Mean Corpuscular Hemoglobin 26.3 pg (27-33); Mean Corpuscular Volume 79.7 fL (80-97); Mean Platelet Volume 8.5 fL (7.5-11.2); Platelet Count 333 10^3/uL (150-450); Red Blood Count 3.69 10^6/uL (3.63-4.92); Red Cell Distribution Width 13.6 % (12-17); White Blood Count 14.8 10^3/uL (3.8-11.8)
[2024-11-22 09:27] LABS: Albumin 3.2 g/dL (3.5-5.7); Albumin/Globulin Ratio 1.2 (1-3); Calcium 7.6 mg/dL (8.6-10.3); Creatinine, Serum 1.53 mg/dL (0.51-0.95); Globulin 2.7 g/dL (2-4); Magnesium 2.2 mg/dL (1.9-2.7); Total Bilirubin 0.2 mg/dL (0.2-1.0); Total Protein 5.9 g/dL (6.4-8.9); eGFR CKD-EPI 37.8 (>60)
[2024-11-22 09:28] LABS: Potassium 3.7 mmol/L (3.5-5.0)
[2024-11-22] MEDS: Albuterol/Ipratropium NEB.SOL (2.5/0.5 MG) 3 ML NEB.SOLN INH SCH (16:51)
[2024-11-22] MEDS: Bumetanide IV 0.25 MG/ML 4 ml VIAL (1 mg) IV SLOW PU ONE (20:34)
[2024-11-23 08:33] LABS: ABS Eosinophils 0.5 10^3/uL (0.0-0.5); ABS Lymphocytes 3.8 10^3/uL (1.0-4.8); ABS Monocytes 1.1 10^3/uL (0.0-0.9); ABS Neutrophils 10.5 10^3/uL (1.5-7.6); Eosinophil % 2.8 %; Hematocrit 29.7 % (35-45); Hemoglobin 9.7 g/dL (11.5-14.3); Lymphocyte % 23.7 %; Mean Corpuscular Hemoglobin 26.3 pg (27-33); Mean Corpuscular Hgb Conc 32.7 g/dL (31-36); Mean Corpuscular Volume 80.3 fL (80-97); Mean Platelet Volume 8.8 fL (7.5-11.2); Platelet Count 330 10^3/uL (150-450); Red Cell Distribution Width 13.8 % (12-17); White Blood Count 15.8 10^3/uL (3.8-11.8)
[2024-11-23 08:56] LABS: Calcium 7.8 mg/dL (8.6-10.3); Creatinine, Serum 1.16 mg/dL (0.51-0.95); Potassium 3.8 mmol/L (3.5-5.0); eGFR CKD-EPI 52.6 (>60)
[2024-11-23 10:05] LABS: Magnesium 2.4 mg/dL (1.9-2.7)
[2024-11-23] MEDS: Potassium Chlor 10 meq TAB PO ONE (10:33)
[2024-11-23] MEDS: Potassium Chlor 20 meq TAB.ER PO ONE (10:33)
[2024-11-23] MEDS: Magnesium Sulfate 2 gm BAG 2 GM/50 ML BAG IVPB ONE (11:10)
[2024-11-23] MEDS: Bumetanide IV 0.25 MG/ML 4 ml VIAL (1 mg) IV SLOW PU ONE (17:44)
[2024-11-23] MEDS: Senna TAB 8.6 mg TAB PO PRN (22:15)
[2024-11-24 07:17] LABS: ABS Eosinophils 0.3 10^3/uL (0.0-0.5); ABS Lymphocytes 4.1 10^3/uL (1.0-4.8); ABS Monocytes 1.2 10^3/uL (0.0-0.9); ABS Neutrophils 11.3 10^3/uL (1.5-7.6); ABS Nucleated RBC 0.01 10^3/ul; Eosinophil % 1.9 %; Hematocrit 28.5 % (35-45); Hemoglobin 9.4 g/dL (11.5-14.3); Lymphocyte % 24.3 %; Mean Corpuscular Hemoglobin 26.3 pg (27-33); Mean Corpuscular Hgb Conc 32.9 g/dL (31-36); Mean Platelet Volume 9.2 fL (7.5-11.2); Platelet Count 321 10^3/uL (150-450); Red Blood Count 3.56 10^6/uL (3.63-4.92)
[2024-11-24 07:38] LABS: Creatinine, Serum 1.2 mg/dL (0.51-0.95); Magnesium 2.7 mg/dL (1.9-2.7); Phosphorus 3.4 mg/dL (2.5-5.0); Potassium 4.3 mmol/L (3.5-5.0); eGFR CKD-EPI 50.5 (>60)
[2024-11-24 09:31] VITALS: BP 128/71
[2024-11-24] MEDS: Polyethylene Glycol 3350 17 GM PACKET PO ONE (11:32)
== END 2024-11-24 14:30 | disposition home or self-care (01) | DRG 291 ==
LOC: SUATTDRO 11:19 → ICU 11:19 → MED 11-21 15:59
PROVIDERS: ADMIT Internal Medicine Pulmonary Disease; ATTEND Student in an Organized Health Care Education/Training Program